=== PATIENT | male | born 1935 | race Caucasian/White ===

== ENCOUNTER 2016-07-03 13:43 | Inpatient (IN) ==
[2016-07-03] MEDS ORDERED: TYLENOL PO PRN (14:05)
[2016-07-03] MEDS ORDERED: MORPHINE IV PRN (14:05)
[2016-07-03] MEDS ORDERED: CARDIZEM 100 MG/NS 100 MG/100 ML IVPB IV SCH (14:08)
[2016-07-03] MEDS ORDERED: ULTRAM PO PRN (14:14)
[2016-07-03] MEDS ORDERED: SODIUM CHLORIDE 0.9% INJ PRN (14:15)
[2016-07-03] MEDS ORDERED: PHENERGAN IV PRN (14:15)
--- NOTE | 2016-07-03 14:47 | Diag Imaging Result Doc PS360 ---
CHEST-PORTABLE - 07/03/2016 INDICATION: a flutter TECHNIQUE: COMPARISON: None FINDINGS: There are sternotomy wires. Heart size and pulmonary vascularity is grossly normal. No focal infiltrates, pneumothorax, or pleural effusion. IMPRESSION: Negative exam. Electronically signed by Moisés García 07/03/2016 2:45 PM
--- NOTE | 2016-07-03 15:00 | HISTORY AND PHYSICAL ---
CHIEF COMPLAINT: Weak episodes and elevated heart rate. HISTORY OF PRESENT ILLNESS: The patient is a 80-year-old white male followed in my medical practice. He is also followed by Dr. Aldo Figueroa his nutrition instructor. He relates that about 1 week to 10 days ago he says he felt so weak he lost strength in his entire body. It was hard for him to get up from a chair and to even carry the garbage to the curb. He says off and on he has had some weak feelings but generally overall has felt well. He denies any chest pain, shortness of breath. He has been suffering from constipation and had tried taking MiraLAX but that seemed to cause rectal irritation and burning so he had to stop that. Today he was having trouble with constipation and had to take an enema. He strained vigorously to evacuate and nearly passed out. He noticed his pulse was in the 135 range. He denies any chest pains. He has been seeing Dr. Figueroa and last saw Dr. Figueroa and had 48 hour Holter monitor back in July 2015. Echo was done at that time as well with EF of 63%. 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 Postoperatively a couple of weeks later he suffered a stroke which left him paralyzed briefly on 1 side but he was able to have tPA administration and then was able to be transferred to [facility] and have intracranial intervention with stent. At that time fortunately he was able to regain complete use of his arms and legs and has been doing well generally since then. MEDICATIONS: Prior to admission are folic acid 800 mcg p.o. daily, aspirin 81 mg daily, Plavix 75 mg p.o. daily, Protonix 40 mg p.o. daily, Toprol-XL 25 mg p.o. daily, Lipitor 20 mg p.o. at bedtime, Ultram 50 mg p.o. q.6 hours p.r.n. pain. ALLERGIES: BRANDON inhibitor has caused a cough in the past. He also has an allergy to Ambien. PAST MEDICAL HISTORY: 1. Hypercholesterolemia diagnosed in 1994. 2. Hypertension 1997. 3. History of hemorrhoids. 4. History of pruritus ani. 5. Diet-controlled type 2 diabetes mellitus diagnosed September 2004. 6. CAD diagnosed via a calcium score of the heart 2009 with no VA but did require CABG. 7. CVA as above without residual. 8. Prostate cancer with observation therapy only, diagnosed initially in October 2013. 9. Gastroesophageal reflux disease. 10. Chronic constipation. 11. Chronic low back pain. Followed by Dr. Castillo with epidural injections. PAST SURGICAL HISTORY: 1. Hemorrhoidectomy x2. 2. Vasectomy in 1967. 3. Septoplasty. 4. CABG 2009. IMMUNIZATIONS: Pneumovax 23 given 04/21/2005 and January 2016. Zostavax given December 2006. Prevnar 13 given November 2014. Influenza vaccination given January 2016. FAMILY HISTORY: Notable for mother with VA at age 43 and brother VA at age 52. Stroke in his father at age 72. Diabetes mellitus in his maternal grandmother. No cancer in the family. Hypertension in his mother and brother. SOCIAL HISTORY: Patient lives in [place]. He is . He has 2 children. He is retired from [employer]. He quit smoking in 1959 and has a 3 pack year history of smoking. No alcohol usage. REVIEW OF SYSTEMS: Negative except as above. PHYSICAL EXAMINATION: VITAL SIGNS: Weight 172, blood pressure 102/70, pulse 136, O2 saturation on room air 98%. Temperature 96.9 degrees. GENERAL: Elderly white male, in no acute distress. HEENT: NC/AT, RHIANNA, EOMI. Sclerae slightly muddy. OP no redness. Tongue in the midline. NECK: No LA, TMG, JVD, or bruits. CV: Seems regular but prominent tachycardia noted. LUNGS: CTA. BACK: No CVA tenderness. ABDOMEN: Nontender, mildly protuberant. No mass or organomegaly. No rebound or guarding. GENITOURINARY/RECTAL: Deferred. EXTREMITIES: No edema. Arthritic changes are noted diffusely at this joint. NEUROLOGIC: Cranial nerves 2-12 are intact. He moves all extremities well. No distinct deficit is noted. EKG shows atrial flutter with 2-1 pattern with heart rate of 131. Troponin less than 0.01. Sedimentation rate is 5. White count, 11.4, hemoglobin 14.4, platelets 224,000. TSH 2.65, free T4 1.19. Sodium 145, potassium 4.7, chloride 107, CO2 23, glucose 90, BUN 18, creatinine 1.2, calcium 9.4, total bilirubin 0.71, total protein 7.3, albumin 4.1, alkaline phosphatase 79, SGOT 19, SGPT 13, total CK 98. Hemoglobin A1c 5.8. ASSESSMENT: 1. Atrial flutter with rapid ventricular response. 2. Presyncope thought related to #1. 3. Constipation, chronic. Unable to tolerate MiraLAX. We will change it to Linzess. 4. History of CAD with previous CABG. 5. History of cerebrovascular accident with no residual. 6. Hypercholesterolemia. 7. Hypertension. 8. Gastroesophageal reflux disease. 9. History of prostate cancer on observation therapy per Dr. Regan. PLAN: Will admit the patient to the ICU. Obtain serial cardiac enzymes, troponin levels. Check SPEP due to his chronic back pain. Start him on IV Cardizem if his blood pressure allows. Start him on full dose Lovenox. We will consult Cardiology. I have spoken in detail with Dr. Figueroa regarding the case. We will check chest x-ray. Check PT PTT. Hold his aspirin and Plavix but continue his other home medications except for the Toprol-XL. cc: Romeo Gale MD
[2016-07-03 15:17] LABS: INR 1.05; PROTIME 11.1 Seconds (9.2-11.7); PTT 27.7 Seconds (22.0-36.0)
[2016-07-03] MEDS: LOVENOX SUBQ SCH (15:23)
--- NOTE | 2016-07-03 15:35 | EKG Report ---
Test Performed on : 07/03/2016 2:38:49 PM Test Reason : AFLUTTER Blood Pressure : / mmHG Vent. Rate : 139 BPM Atrial Rate : 278 BPM P-R Int : 000 ms QRS Dur : 098 ms QT Int : 336 ms P-R-T Axes : 000 007 003 degrees QTc Int : 511 ms Atrial flutter. with variable AV block. with premature ventricular or aberrantly conducted complexes . Nonspecific ST abnormality Abnormal ECG When compared with ECG of 24-DEC-2014 20:11, Atrial flutter. has replaced Sinus rhythm. Vent. rate has increased BY [address] now depressed in Inferior leads ST now depressed in Lateral leads Confirmed by Dave LAKHANI, Rojelio Esparza ([id number]) on 07/07/2016 8:17:47 AM
--- NOTE | 2016-07-03 18:55 | CONSULTATION ---
DATE OF CONSULTATION: 07/03/2016 CARDIOLOGY CONSULTATION NOTE: IMPRESSION: 1. Atrial flutter with rapid ventricular rate, probably of about 10 days duration coinciding with onset of fatigue symptoms. 2. Episode of near syncope today while straining to have bowel movement. 3. Atherosclerotic coronary artery disease with previous coronary bypass grafting in 2009. 4. Cerebrovascular accidents approximately 2 days after being discharged from coronary bypass surgery in 2009. This was felt to be embolic. 5. Status post recurrent small cerebrovascular accident December 2014 with transient global amnesia that coincided withholding of anti-platelet agents. 6. Diet controlled type 2 diabetes mellitus. 7. Gastroesophageal reflux. 8. Chronic constipation. 9. Prostate cancer. 10. Hypercholesterolemia. 11. Hypertension. RECOMMENDATIONS: 1. Initiate measures to control heart rate with intravenous Cardizem transitioning to oral agents. 2. Significant thromboembolic risk potential demonstrated in light of patient's CHADS Vasc score. Initiate anticoagulation with Lovenox, probably transitioning to Eliquis. 3. Echocardiography. 4. In light of long holiday weekend, we will try to manage in-hospital to achieve rate control and anticoagulation and consider future TE cardioversion as an outpatient. HISTORY: This is a 80-year-old, white male, with past history of previous coronary bypass grafting in 2009, hypertension, hypercholesterolemia, cerebrovascular accident 2 days after discharge from coronary bypass procedure in 2009, small cerebrovascular accident 2014 after being taken off antiplatelet agents, diet controlled type 2 diabetes mellitus and prostate cancer, who was admitted today from Dr. Gale's office after he presented with fatigue and episode of near syncope. He was found to be in atrial flutter with rapid ventricular rate. He has been started on intravenous Cardizem and subcutaneous Lovenox. He is presently asymptomatic from a cardiovascular standpoint. He has had no angina, orthopnea, or palpitations. He is not aware of any previous atrial arrhythmias. He relates that he started having fatigue about 10 days ago. Today he was having some problems with constipation and was straining at stool when he experienced near-syncope. This was rather unusual for him and prompted him to seek evaluation in Dr. Gale's office. PAST MEDICAL HISTORY: 1. Atherosclerotic coronary disease and previous coronary bypass grafting in 2009. 2. Hypertension. 3. Hypercholesterolemia. 4. Diet controlled type 2 diabetes mellitus. 5. Cerebrovascular accident on 2 occasions as outlined above. 6. Prostate cancer. 7. Gastroesophageal reflux. 8. Chronic constipation. 9. Chronic low back pain. PAST SURGICAL HISTORY: Includes coronary artery bypass grafting in 2010, septoplasty, vasectomy, hemorrhoidectomy on 2 occasions. ALLERGIES: He is allergic or intolerant to angiotensin converting enzyme inhibitors which caused a cough. He is also intolerant of Ambien. CURRENT MEDICATIONS: As listed. SOCIAL HISTORY: He lives in [place]. He is . He is retired from [employer]. He quit smoking in 1959 and has a 3 pack-year history of smoking. He does not use alcohol. FAMILY HISTORY: Positive for coronary disease in that his mother suffered a myocardial infarction at age 43 and a brother suffered myocardial infarction at age 52. REVIEW OF SYSTEMS: Pulmonary: Negative. Gastrointestinal: Negative. Constitutional: Negative. Remainder review of systems negative beyond history of present illness with 14 total systems reviewed. PHYSICAL EXAMINATION: General: This is a pleasant, older white male in no distress. Vital Signs: As recorded are stable. HEENT: Extraocular movements appear intact. Mucous membranes are moist. Neck: Supple. No jugular venous distention. There are no carotid bruits. Chest: Clear to auscultation. Cardiac Exam: Reveals an irregular rate and rhythm without appreciable murmur or gallop. Abdomen: Soft, nontender. Bowel sounds are normal. Extremities: Without edema. Neurologic Exam: Reveals him to be alert, fully oriented. Speech is fluent. Moves all 4 extremities equally well. Skin: Warm and dry. Psychiatric: Reveals mood to be appropriate. DIAGNOSTIC DATA: ECG demonstrates atrial flutter with variable AV block, occasional premature or aberrantly conducted complexes. There is nonspecific ST abnormality. Laboratory data includes a troponin T of less than 0.01, ProTime 11.1, INR 1.05. Additional lab pending. cc: MD Romeo Armenta MD
[2016-07-03] MEDS: LOPRESSOR PO SCH (20:17)
[2016-07-03] MEDS ORDERED: LIPITOR PO SCH (21:00)
[2016-07-04] MEDS: LOVENOX SUBQ SCH (01:56)
[2016-07-04] MEDS: LOPRESSOR PO SCH ×2 (01:57→08:25)
[2016-07-04] MEDS ORDERED: PROTONIX PO SCH (07:00)
[2016-07-04 08:12] VITALS: BP 123/68
[2016-07-04] MEDS ORDERED: FOLIC ACID PO SCH ×2 (09:00)
[2016-07-04] MEDS ORDERED: THERA M PLUS PO SCH (09:00)
[2016-07-04] MEDS ORDERED: ASPIRIN PO SCH (09:00)
[2016-07-04] MEDS ORDERED: VITAMIN B-12 PO SCH (09:00)
--- NOTE | 2016-07-04 10:52 | PROGRESS NOTE ---
DATE: 07/04/2016 SUBJECTIVE: The patient continues without chest symptoms and relates feeling well. Overnight, he converted back to sinus rhythm. OBJECTIVE: Vital Signs: Blood pressure 123/68, heart rate 56 and regular with ECG monitor showing sinus rhythm. Neck: There is no significant jugular venous distention. Chest: Clear to auscultation. Cardiac exam: There was a regular rate and rhythm without appreciable murmur or gallop. There is no evidence of peripheral edema. Echocardiography demonstrates left ventricular ejection fraction 55% without wall motion evident. There is aortic valve sclerosis with mild aortic regurgitation, and there is also mild tricuspid regurgitation. LAB DATA: Troponin T less than 0.01. Followup troponin T less than 0.01. IMPRESSION: 1. Atrial flutter, resolved. 2. Atherosclerotic coronary disease, stable. 3. Previous cerebrovascular accident. 4. Hypercholesterolemia. 5. Hypertension. RECOMMENDATIONS: 1. Continue metoprolol. 2. Transition anticoagulation to Eliquis for thromboembolic risk protection. 3. Given conversion back to sinus rhythm, it is reasonable for patient to be discharged today and follow up within [address] Figueroa. We will see further on an as-needed basis. cc: MD Romeo Armenta MD
--- NOTE | 2016-07-04 11:31 | ECHO REPORT ---
ORDER DATE: 07/03/2016 MEASUREMENTS: Left ventricular end-diastolic diameter 3.8, end-systolic diameter 2.9, posterior wall thickness 1.3, septal thickness 1.1, left atrium 3.7, aortic root 4.1. SUMMARY: 1. Fair quality study. 2. Trileaflet aortic valve is sclerotic with mildly reduced aortic valve leaflet mobility but visibly adequate aortic valve opening evident on 2-dimensional views. Peak instantaneous gradient across the aortic valve is less than 10 mmHg. There is mild aortic regurgitation. Mitral, tricuspid, and pulmonic valves are without structural abnormality with trace mitral regurgitation and mild tricuspid regurgitation. Estimated systolic PA pressure by Doppler is 25 mmHg. The aortic root is mildly enlarged. 3. Normal left ventricular chamber size with upper normal wall thickness demonstrated. Estimated left ventricular ejection fraction is approximately 55%. No regional wall motion abnormalities are evident. Diastolic function difficult to determine as patient in atrial flutter at the time of study. Left atrium is upper normal in size. Right atrium and right ventricle have normal size with grossly preserved right ventricular force. 4. No pericardial effusion. 5. Appearance of inferior vena cava suggests normal central venous pressure. 6. Atrial flutter during study. CONCLUSIONS: 1. Aortic valve sclerosis without stenosis. Mild aortic regurgitation. 2. Mild tricuspid regurgitation. 3. Normal left ventricular ejection fraction without wall motion abnormality evident. 4. Mild aortic root enlargement. cc: MD Romeo Armenta MD
--- NOTE | 2016-07-04 11:58 | PROGRESS NOTE ---
DATE: 07/04/2016 SUBJECTIVE: Patient doing well. Sitting up in bed. He converted to sinus rhythm out of the atrial flutter around 11 p.m. last evening. He has had no difficulties. He has been on the Lovenox and the Cardizem drip. I have spoken with Dr. Negrete, who thinks he can go home on a slightly higher dose of his Toprol and on Eliquis. I had spoken with Dr. Figueroa prior to his admission. He recommended the Plavix in addition to the Eliquis. OBJECTIVE: Vital Signs: Afebrile, pulse 56, respirations 22, blood pressure 123/68, O2 saturation room air 96%. CV: RRR. Lungs: CTA. Extremities: No edema. Neuro: Nonfocal. Cranial nerves intact. LABS: Cardiac enzymes and troponin levels negative x3 prior to admission. Thyroid function tests normal. ASSESSMENT: 1. Atrial flutter, now resolved. 2. Presyncope, thought related to #1 with straining for a bowel movement. 3. Chronic constipation. 4. Coronary artery disease. 5. History of cerebrovascular accident. 6. Hypercholesterolemia. 7. Hypertension. 8. Gastroesophageal reflux disease. 9. Prostate cancer. PLAN: We will discharge the patient home on Toprol-XL 50 mg daily and Eliquis 5 mg b.i.d. and Plavix 75 mg daily and Linzess 78 mcg daily, and his other home medications. He will follow up in my office in 3-[address] Figueroa within a week. If he has any difficulties, he knows to come back here to the ER. cc: Romeo Gale MD
[2016-07-04] MEDS ORDERED: ELIQUIS PO SCH (21:00)
[2016-07-05] MEDS ORDERED: TOPROL XL PO SCH (09:00)
== END 2016-07-04 12:10 | disposition home or self-care (01) ==
LOC: DIRADM 13:43 → ICU 14:05
PROVIDERS: ADMIT Family Medicine; ATTEND Family Medicine

== ENCOUNTER 2016-08-18 16:29 | Inpatient (IN) ==
--- NOTE | 2016-08-18 17:20 | PROVIDER DOCUMENTATION ---
This chart was entered by Jade Lopez Scribe, acting as scribe for Meng Mckoy MD. HPI-Cardiac General - General Chief Complaint: Palpitations Stated Complaint: HIGH B/P,HEART RACING Time Seen by Provider: 08/18/16 16:43 Source: patient Allergies/Adverse Reactions: Patient Allergies Allergy/AdvReac Type Severity Reaction Status Date / Time No Known Allergies Allergy Verified 08/18/16 17:20 Home Medications: Home Medication List Medication Instructions Recorded Confirmed Last Taken Type Atorvastatin Calcium [Lipitor] 20 mg PO HS 12/24/14 08/18/16 08/17/16 20:00 History Clopidogrel Bisulfate [Plavix] 75 mg PO HS 12/24/14 08/18/16 08/17/16 20:00 History Folic Acid 1 mg PO DAILY 12/24/14 08/18/16 08/18/16 08:00 History Pantoprazole Sodium 40 mg PO DAILY 07/03/16 08/18/16 Unknown History Apixaban [Eliquis] 5 mg PO BID #60 tablet 07/04/16 08/18/16 08/18/16 07:00 Rx Tramadol [Ultram] 1 tab PO Q4-6H PRN PRN 07/04/16 08/18/16 Unknown History Metoprolol [Lopressor] 25 mg PO HS 08/18/16 08/18/16 08/18/16 08:00 History Potassium 99 mg PO DAILY 08/18/16 08/18/16 08/18/16 08:00 History - History of Present Illness-Cardiac Nature of Presenting Problem: 80 Y/O M present to ED with Palpitations. 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 Pt has a hx of CABG and CVA. Location: reports: central Severity in ED: moderate, severe Onset/Duration: just prior to arrival, 1/2 hour ago Timing: still present Context/Activities at Onset: reports: none Palpitation Quality: fast/pounding heart beat Nitro Today/Relief: reports: no nitro taken today Associated Symptoms: reports: denies symptoms Similar Symptoms Previously?: Yes Review of Systems - Adult - REVIEW OF SYSTEMS - ADULT Constitutional: denies: chills, fever Eyes: reports: no symptoms reported Ears, Nose, Mouth & Throat: reports: no symptoms reported Cardiovascular: reports: palpitations. denies: chest pain, syncope, other Respiratory: denies: cough, shortness of breath Gastrointestinal: reports: no symptoms reported Genitourinary: reports: no symptoms reported Musculoskeletal: reports: no symptoms reported Integumentary: reports: no symptoms reported Neurological: reports: no symptoms reported Psychiatric: reports: no symptoms reported Endocrine: reports: no symptoms reported Hematologic/Lymphatic: reports: no symptoms reported Allergic/Immunologic: reports: no symptoms reported All Other Systems: Reviewed and Negative Past History - Adult - PAST MEDICAL HISTORY-ADULT Review of Records: reports: Old Records Reviewed, Nursing Assessment Review, Medications Reviewed, Social history reviewed & non-contributory. Cardiovascular: reports: HTN Neurological: reports: TIA - PRIOR SURGERIES/PROCEDURES Surgical/Procedure History: reports: CABG, other (brain stent) - IMMUNIZATION STATUS Childhood Immunizations: See Nurse Assessment Flu Vaccine: See Nurse Assessment Physical Exam-General - PHYSICAL EXAM-ADULT Initial Vital Signs Reviewed: Yes - CONSTITUTIONAL General Appearance: appears well, alert, no apparent distress - EYES Eyes: pink conjunctivae, anisocoria - HEAD, EARS, NOSE, MOUTH & THROAT HENMT: moist mucous membranes, normal ENT inspection, TMs normal, pharynx normal - NECK Neck: full range of motion, supple, normal inspection - RESPIRATORY Respiratory: lungs clear, normal breath sounds - CARDIOVASCULAR Cardiovascular: tachycardia - GASTROINTESTINAL (ABDOMEN) Abdominal Exam: non tender, soft - MUSCULOSKELETAL Back Exam: no CVA tenderness, no vertebral tenderness Extremity: normal range of motion - SKIN Integumentary: normal turgor, warm/dry - PSYCHIATRIC Psych/Mental Status: normal thought content, normal thought process Progress - PLAN OF CARE/RESULTS Progress/Plan/Lab Results: Vital Signs - 8 hr 08/18/16 16:39 08/18/16 17:31 08/18/16 17:36 Temperature 98.5 F Pulse Rate 125 H 127 H 127 H Respiratory Rate 18 16 16 Blood Pressure 141/87 83/69 116/77 O2 Sat by Pulse Oximetry 97 94 L 95 Laboratory Results - last 24 hr 08/18/16 08/18/16 08/18/16 17:11 17:11 17:11 WBC 9.70 RBC 5.09 Hgb 14.0 Hct 42.6 MCV 83.7 MCH 27.5 MCHC 32.9 L RDW Std Deviation 14.5 Plt Count 282 MPV 10.2 Immature Gran % (Auto) 0.5 Neut % (Auto) 54.9 Lymph % (Auto) 28.4 [place] % (Auto) 11.8 H Eos % (Auto) 4.0 Baso % (Auto) 0.4 Immature Gran # (Auto) 0.05 H Neut # (Auto) 5.33 Lymph # (Auto) 2.75 [place] # (Auto) 1.14 H Eos # (Auto) 0.39 Baso # (Auto) 0.04 Sodium 142 Potassium 3.7 Chloride 105 Carbon Dioxide 20 L Anion Gap 17 BUN 12 Creatinine 1.1 Estimated GFR/1.73 m2 > 60 BUN/Creatinine Ratio 11 Glucose 142 H Calculated Osmolality 285 Calcium 9.6 Magnesium 2.3 Total Bilirubin 0.35 AST 22 ALT 17 Alkaline Phosphatase 84 Troponin T Total Protein 6.7 Albumin 4.3 Globulin 2.4 Albumin/Globulin Ratio 1.8 TSH 1.65 Free T4 1.27 08/18/16 17:11 WBC RBC Hgb Hct MCV MCH MCHC RDW Std Deviation Plt Count MPV Immature Gran % (Auto) Neut % (Auto) Lymph % (Auto) [place] % (Auto) Eos % (Auto) Baso % (Auto) Immature Gran # (Auto) Neut # (Auto) Lymph # (Auto) [place] # (Auto) Eos # (Auto) Baso # (Auto) Sodium Potassium Chloride Carbon Dioxide Anion Gap BUN Creatinine Estimated GFR/1.73 m2 BUN/Creatinine Ratio Glucose Calculated Osmolality Calcium Magnesium Total Bilirubin AST ALT Alkaline Phosphatase Troponin T < 0.010 Total Protein Albumin Globulin Albumin/Globulin Ratio TSH Free T4 Orders Category Date Time Status Cardiac Monitoring DIRECTED Care 08/18/16 16:50 Active Oxygen Therapy- ED Nursing DIRECTED Care 08/18/16 16:50 Active Saline Loc NOW Care 08/18/16 16:50 Active CHEST-PORTABLE [RAD] Stat Exams 08/18/16 16:50 Taken CBC WITH ELECTRONIC DIFF [HEME] Stat Lab 08/18/16 17:11 Completed COMPREHENSIVE METABOLIC PANEL [CHEM] Stat Lab 08/18/16 17:11 Completed MAGNESIUM [CHEM] Stat Lab 08/18/16 17:11 Completed PRO B-NATRIURETIC PEPTIDE Stat Lab 08/18/16 17:11 Received TROPONIN T Stat Lab 08/18/16 17:11 Completed TSH Stat Lab 08/18/16 17:11 Completed t4 [FREE T4] Stat Lab 08/18/16 17:11 Completed 0.9% Sodium Chloride Inj [Ns] 1,000 ml Med 08/18/16 17:33 Discontinued .ROUTE As Directed Diltiazem 100 mg/Ns [Cardizem 100 mg/Ns] Med 08/18/16 17:53 Active 100 mg in 100 ml IV 5 mg/hr Diltiazem [Cardizem] Med 08/18/16 17:30 Discontinued 10 mg IV NOW ONE Diltiazem [Cardizem] Med 08/18/16 17:25 Discontinued 25 mg .ROUTE .STK-MED ONE EKG [EKG] Stat Ther 08/18/16 16:50 Ordered Result Diagrams: 08/18/16 17:11 08/18/16 17:11 - REASSESSMENT Reassessment #1 Time Reassessed: 17:57 Status: unchanged (hx of atrial flutter, did not convert after 10 mg diltiazem, still appears to be sinus, will give fluid bolus pending lab) Reassessment #2 Time Reassessed: 17:57 Status: improving (now sort of hypotensive but atrial flutter/fib - giving fluid bolus and sending to floor. HR went to 110 and lower. Will see if lolerates a diltiazem drip) - EKG 1 Time of EKG reading by physician:: 16:36 EKG Read and Signed by:: Monico Yates EKG Interpretation (*Must complete 3 of following elements*): Abnormal Rate: 125 Rhythm: Sinus Tachycardia Comments: Abnormal ECG, Posterior Infract 2 Time of EKG reading by physician:: 17:33 EKG Read and Signed by:: Meng Mckoy EKG Interpretation (*Must complete 3 of following elements*): Abnormal Rate: 108 Rhythm: Atrial flutter with variable AV block Comments: Abnormal ECG. Inferior posterio infract, age undetermined - CONSULTS/PCP/HOSPITALIST Notification #1 *Consult/PCP/Hospitalist*: Dr Gale (Dr Saldana covering) Time Discussed: 18:21 Consult Disposition: Admit (discussed dig/ diltiazem drip) Departure - Departure Date of Disposition Decision: 08/18/16 Time of Disposition Decision: 18:22 DIAGNOSIS: Atrial fibrillation and flutter Disposition: ADMITTED INPATIENT 09 Certified Medical Emergency: Emergent Condition: Stable Referrals and Follow-Ups: Romeo Gale MD [Primary Care Provider] - - Critical Care Note This patient required my direct & personal management of CC.: No This chart was documented by the indicated scribe, (Jade Lopez, Jazmyn) and accurately reflects the services I performed and decisions made by me, Meng Mckoy MD, as attested by the provider's signature.
[2016-08-18] MEDS ORDERED: CARDIZEM ONE (17:25)
[2016-08-18 17:26] LABS: MANUAL DIFF NEEDED? NO
[2016-08-18] MEDS ORDERED: CARDIZEM IV ONE (17:30)
[2016-08-18 17:31] LABS: BASO% 0.4 % (0.0-0.8); EOS# 0.39 X1000 (0.0-0.7); HEMATOCRIT 42.6 % (42.0-52.0); IMM GRAN# 0.05 X1000 (0.0-0.04); IMM GRAN% 0.5 % (0.0-0.5); LYMPH# 2.75 X1000 (1.2-3.4); LYMPH% 28.4 % (20.5-51.1); MCH 27.5 PG (27-31); MCHC 32.9 g/dL (33-37); MCV 83.7 FL (81-99); MONO# 1.14 X1000 (0.11-0.59); MONO% 11.8 % (1.7-9.3); MPV 10.2 FL (7.4-10.4); NEUT% 54.9 % (42.2-75.2); PLT 282 X1000 (130-400); RBC 5.09 XMIL (4.7-6.1)
[2016-08-18] MEDS ORDERED: NS 1,000 ML ONE (17:33)
[2016-08-18] MEDS ORDERED: CARDIZEM 100 MG/NS 100 MG/100 ML IVPB IV SCH (17:53)
[2016-08-18 17:59] LABS: AGAP 17; ALBUMIN 4.3 g/dL (3.5-5.0); ALKALINE PHOSPHATASE 84 U/L (32-122); BUN 12 mg/dL (8-22); CALCIUM 9.6 mg/dL (8.8-10.2); CHLORIDE 105 mmol/L (98-107); COSMO 285; GOT 22 U/L (10-34); GPT 17 U/L (10-44); MAGNESIUM 2.3 mg/dL (1.5-2.7); POTASSIUM 3.7 mmol/L (3.5-5.1); SODIUM 142 mmol/L (136-145); TCO2 20 mmol/L (25-35); TOTAL BILIRUBIN 0.35 mg/dL (0.20-1.00); TOTAL PROTEIN 6.7 g/dL (6.3-8.3)
[2016-08-18 18:07] LABS: FREE T4 1.27 ng/dL (0.93-1.70)
[2016-08-18] MEDS ORDERED: NS 1,000 ML IV ONE (18:09)
[2016-08-18] MEDS ORDERED: LANOXIN IV ONE (18:11)
--- NOTE | 2016-08-18 19:08 | Diag Imaging Result Doc PS360 ---
EXAM: CHEST-PORTABLE HISTORY: sob/ tachycardia TECHNIQUE: AP portable upright chest at 1725 COMMENT: The appearance of the chest has not changed significantly since 07/03/2016. IMPRESSION: No evidence of acute disease. Electronically signed by Umesh Crawford 08/18/2016 7:06 PM
--- NOTE | 2016-08-18 19:25 | HISTORY AND PHYSICAL ---
HISTORY OF PRESENT ILLNESS: Mr. Velasquez is a 80-year-old, white gentleman, patient of Dr. Gale, comes to the emergency room because his heart started beating faster, it was around 124. He was alert. He came to the emergency room and his heart rate went up to about 140 with atrial fibrillation. He was started on Cardizem IV and the blood pressure dropped. Lanoxin 0.5 mg has been given so far. His heart rate is still around 118, however, the blood pressure does come back up with IV bolus. He has a known case of coronary artery disease. He had 2 vessel bypass surgery. He had a stroke on the left side. According to the family, he was taken to [facility] where the clot was extracted and he improved significantly. He has a history of hypertension and intermittent atrial fibrillation. He was admitted a month ago to ICU and later on converted. He did not have any other major surgeries performed on him. He smoked some when he was young but he has not been a smoker. He does not drink. ALLERGIES: He is not allergic to medications. INCOMPLETE REPORT - DICTATION STOPS HERE cc: Arie Saldana MD
[2016-08-18] MEDS: LOPRESSOR PO SCH (21:24)
[2016-08-18] MEDS: PLAVIX PO SCH (21:24)
[2016-08-18] MEDS: LIPITOR PO SCH (21:24)
[2016-08-18] MEDS: ELIQUIS PO SCH (21:25)
--- NOTE | 2016-08-19 03:37 | HISTORY AND PHYSICAL ---
ADDENDUM SOCIAL HISTORY: Mr. Velasquez does not drink. ALLERGIES: He is not allergic to any medications. CURRENT MEDICATIONS: Protonix 40 mg daily. Apixaban 5 mg daily. Plavix 75 mg daily basis. REVIEW OF SYSTEMS: General: He is weak. Cardiopulmonary: He has palpitation, no chest pain. Lungs: He has no shortness of breath. He has not gone into congestive heart failure so far. He says he did not have a heart attack. PHYSICAL EXAMINATION: Mr. Velasquez is alert. VITAL SIGNS: His heart rate is around 127, blood pressure 137/104, temperature normal, respiratory rate 17 per minute. HEENT: Head normocephalic. Pupils PERRLA. Fundus examination not done. Neck supple. JVP normal. ENT examination unremarkable. There is no evidence of lymphadenopathy, thyroid enlargement, pedal edema, calf tenderness, anemia, cyanosis or clubbing. Pedal pulses well felt. BREASTS: Normal. Chest normal inspection. It reveals a midline scar from bypass surgery. LUNGS: Clear on auscultation. PMI in the normal position. HEART: Regular. Heart rate is around 120 per minute. There is no murmur, gallop or rub noted. ABDOMEN: Nondistended. Hernial orifices normal. No guarding, rigidity, free fluid, masses, or organomegaly. Bowel sounds normal. RECTAL: Deferred. ALARM SECURITY OR SURVEILLANCE MONITOR/HIGHER FUNCTIONS: Normal. Cranial nerves normal. Motor and sensory system examination unremarkable. Deep tendon reflexes normal. Plantars downgoing. Skull and spine examination normal for age. No cerebellar signs or signs of meningeal irritation. LOCOMOTOR: Unremarkable. SKIN: Unremarkable. CLINICAL IMPRESSION: 1. Atrial fibrillation with rapid ventricular response of blood pressure. 2. History of hypertension. 3. Severe coronary artery disease. 4. History of cerebrovascular accident in the past. 5. His current medications include pantoprazole, tramadol, metoprolol, folic acid, clopidogrel, Lipitor and apixaban 5 mg b.i.d. We will we will admit him to ICU. cc: Arie Saldana MD
--- NOTE | 2016-08-19 05:44 | EKG Report ---
Test Performed on : 08/18/2016 4:36:55 PM Test Reason : NO ORDER Blood Pressure : / mmHG Vent. Rate : 125 BPM Atrial Rate : 125 BPM P-R Int : 184 ms QRS Dur : 112 ms QT Int : 326 ms P-R-T Axes : 079 018 088 degrees QTc Int : 470 ms Sinus tachycardia. Posterior infarct , age undetermined Abnormal ECG When compared with ECG of 03-JUL-2016 14:38, Sinus rhythm. has replaced Atrial flutter. ST elevation has replaced ST depression in Inferior leads Unconfirmed Result
[2016-08-19] MEDS: FOLIC ACID PO SCH (08:23)
[2016-08-19] MEDS: PROTONIX PO SCH (08:23)
[2016-08-19] MEDS: ELIQUIS PO SCH ×2 (08:23→20:52)
[2016-08-19] MEDS: CORDARONE PO SCH ×3 (10:40→16:33)
--- NOTE | 2016-08-19 12:55 | EKG Report ---
Test Performed on : 08/19/2016 10:28:34 AM Test Reason : afib/aflutter Blood Pressure : / mmHG Vent. Rate : 071 BPM Atrial Rate : 071 BPM P-R Int : 182 ms QRS Dur : 104 ms QT Int : 408 ms P-R-T Axes : 012 005 074 degrees QTc Int : 443 ms Normal sinus rhythm. ST \T\ T wave abnormality, consider anterior ischemia Abnormal ECG When compared with ECG of 18-AUG-2016 17:33, (Unconfirmed) Sinus rhythm. has replaced Atrial flutter. Vent. rate has decreased BY 37 BPM Criteria for Inferior-posterior infarct are no longer present T wave inversion now evident in Anterior leads Confirmed by Leti Villagran MD ([id number]) on 08/19/2016 1:33:10 PM
--- NOTE | 2016-08-19 13:06 | PROGRESS NOTE ---
DATE: 08/19/2016 SUBJECTIVE: Patient remains in the ICU. Heart rate has come down overnight with Cardizem drip to below 100. He remains in atrial fibrillation. Denies any chest pains. No shortness of breath. OBJECTIVE: Vital Signs: Afebrile, pulse 92, pressure 127/82. General: Elderly, white male, in no acute distress. Talkative, appropriate. Neurologic: Cranial nerves intact. CV: Irregularly irregular. Lungs: CTA. Extremities: No edema. Arthritic changes noted to hands. Lab Data: Reviewed from admission to include CBC, CMP, thyroid function test, proBNP, troponin, total CKs which we will get. Chest x-ray negative. ASSESSMENT: 1. Paroxysmal atrial fibrillation with rapid ventricular response, now improved on a Cardizem drip. 2. Hypercholesterolemia. 3. Hypertension. 4. Diet-controlled type 2 diabetes mellitus. 5. Coronary artery disease with history of coronary artery bypass graft in the past. 6. History of cerebrovascular accident without significant residual. 7. Prostate cancer with observation therapy. 8. Gastroesophageal reflux disease. 9. Chronic constipation. 10. Chronic low back pain. PLAN: Dr. Negrete is recommending that the patient be moved out of the ICU to the [facility] and we will monitor him there on telemetry. He is changing off the Cardizem drip to amiodarone orally. We will keep him on his Eliquis and Plavix. Monitor his heart rate on the amiodarone. Continue his other home medications except for the potassium supplementation. We will follow the patient clinically. cc: Romeo Gale MD
--- NOTE | 2016-08-19 13:30 | CONSULTATION ---
DATE OF CONSULTATION: 08/19/2016 IMPRESSION: 1. Recurrent atypical atrial flutter with rapid ventricular rate. This subsequently transitioned to atrial fibrillation with better rate control and then ultimately converted back to sinus rhythm at the time of consultation. The patient had previous atypical atrial flutter 6 weeks ago that also spontaneously converted back to sinus rhythm. 2. Atherosclerotic coronary disease with previous coronary bypass grafting 2009. Left ventricular systolic function normal. 3. Prior cerebrovascular accidents 2 days after being discharged from coronary bypass and felt to be embolic. 4. Status small cerebrovascular accident in 12/2014 with transient global amnesia that coincided with interruption of anti-platelet agents. 5. Type 2 diabetes mellitus. 6. Gastroesophageal reflux. 7. Hypercholesterolemia. 8. Hypertension. RECOMMENDATIONS: 1. Discontinue intravenous Cardizem. 2. Given atypical atrial flutter and coexisting atrial fibrillation that has recurred, favor suppressing atrial arrhythmias with amiodarone. Will initiate loading with amiodarone prior to likely discharge tomorrow. 3. Continue long-term anticoagulation with Eliquis. 4. The patient would benefit from Lexiscan myocardial fusion imaging but this could reasonably be obtained following discharge. 5. There were emerge some tendency for sinus bradycardia or other bradyarrhythmia with treatment of amiodarone that might obligate permanent pacemaker implant. This was reviewed with the patient. HISTORY: This is a 80-year-old, white male, with past history of previous coronary bypass in 2009, hypertension, and hypercholesterolemia, cerebrovascular accident 2 days after discharge from coronary bypass procedure in 2009, small cerebrovascular accident in 2014 after being off antiplatelet agents, type 2 diabetes mellitus controlled with diet. Prostate cancer and atrial arrhythmias was admitted through the emergency room yesterday evening after he presented with sudden sensation of feeling weak with associated tachycardia. He was found to be in atypical atrial flutter and was started on intravenous Cardizem for rate control. He is admitted to the Intensive Care Unit. He denied any chest discomfort, lightheadedness, or syncope. He relates suddenly feeling weak. He checked his blood pressure and tachycardia was realized. He indicates that he fairly often checks his blood pressure and normally notes his heart rate is around 60 beats per minute. He is moderately active. He does walk for exercise but has noted that he has a tendency for some fatigued at times. This predates his being on beta-kathy. While patient being interviewed, he was observed to convert from atypical atrial flutter to atrial fibrillation with decrease in heart rate from 130 beats per minute to 100 beats per minute. Within 5 minutes, thereafter, he converted from atrial fibrillation to sinus rhythm at around 62 beats per minute. PAST MEDICAL HISTORY: 1. Atrial arrhythmias. Specifically, previous atypical atrial flutter. 2. Atherosclerotic coronary artery disease with previous coronary bypass graft in 2009. 3. Hypertension. 4. Hypercholesterolemia. 5. Type 2 diabetes mellitus, controlled with diet. 6. Cerebrovascular accident 2 days after being discharged from coronary bypass surgery in 2009 felt to be embolic. 7. Cerebrovascular accident in 2015 which felt to be small in nature and consisting of transient global amnesia that coincided with interruption of anti-platelet agents. 8. Prostate cancer. 9. Gastroesophageal reflux. 10. Chronic constipation. 11. Chronic low back pain. PAST SURGICAL HISTORY: Previous coronary bypass grafting in 2009, septoplasty, vasectomy, hemorrhoidectomy on 2 occasions. ALLERGIES: He is allergic or intolerant to angiotensin converting enzyme inhibitors due to cough. He is also intolerant of Ambien. CURRENT MEDICATIONS: As listed. It is noteworthy that he has been on anticoagulation with Eliquis. SOCIAL HISTORY: He lives in [place] and is . He is retired from work with [employer]. He quit smoking in 1959 and has a 3 pack-year history of smoking. He does not use alcohol. FAMILY HISTORY: Positive for coronary artery disease at a relatively earlier age. REVIEW OF SYSTEMS: Pulmonary: Negative. Gastrointestinal: Negative. Constitutional: Negative. Remaining review of systems negative beyond history of present illness with 14 total systems reviewed. PHYSICAL EXAMINATION: General: This is a pleasant, older, white male, in no distress. Vital Signs: As recorded are stable. HEENT: Extraocular movements intact. Mucous membranes moist. Neck: Supple. No jugular venous distention. No carotid bruits. Chest: Clear to auscultation. Cardiac: Exam initially revealed an irregular rate and rhythm without appreciable murmur or gallop. Patient converted from atypical flutter to atrial fibrillation to sinus rhythm after which his heart rhythm became regular. Abdomen: Soft, nontender. Bowel sounds are normal. Extremities: Without edema. Neurologic Exam: Reveals him to be alert and fully oriented. Speech is fluent. He moves all 4 extremities equally well. Skin: Warm and dry. Psychiatric: Exam reveals mood to be appropriate. Initial ECG demonstrates atypical atrial flutter with rapid ventricular rate. Nonspecific ST abnormality demonstrated. Repeat ECG after patient converts demonstrates normal sinus rhythm and nonspecific ST and T-wave abnormality demonstrates sinus rhythm, incomplete right bundle branch block and nonspecific T-wave abnormality. cc: MD Romeo Armenta MD
[2016-08-19] MEDS: ULTRAM PO PRN ×2 (16:35→23:16)
[2016-08-19] MEDS: LIPITOR PO SCH (20:51)
[2016-08-19] MEDS: PLAVIX PO SCH (20:52)
[2016-08-19] MEDS: LOPRESSOR PO SCH (21:05)
[2016-08-19] MEDS: DIOVAN PO SCH (21:29)
--- NOTE | 2016-08-20 06:24 | EKG Report ---
Test Performed on : 08/20/2016 05:52:16 AM Test Reason : afib/aflutter Blood Pressure : / mmHG Vent. Rate : 051 BPM Atrial Rate : 051 BPM P-R Int : 208 ms QRS Dur : 112 ms QT Int : 472 ms P-R-T Axes : 035 006 064 degrees QTc Int : [address] \T\ T wave abnormality, consider anterior ischemia Abnormal ECG When compared with ECG of 19-AUG-2016 10:28, No significant change was found Confirmed by Leti Villagran MD ([id number]) on 08/20/2016 1:07:37 PM
[2016-08-20] MEDS: CORDARONE PO SCH (09:40)
[2016-08-20] MEDS: PROTONIX PO SCH (09:40)
[2016-08-20] MEDS: DIOVAN PO SCH (09:40)
[2016-08-20] MEDS: ELIQUIS PO SCH (09:40)
[2016-08-20] MEDS: FOLIC ACID PO SCH (09:40)
[2016-08-20 12:20] VITALS: BP 125/72
--- NOTE | 2016-08-20 13:29 | PROGRESS NOTE ---
DATE: 08/20/2016 SUBJECTIVE: The patient continues asymptomatic from a cardiovascular standpoint. OBJECTIVE: Vital Signs: Blood pressure 125/72, heart rate 66 and regular with ECG monitor showing sinus rhythm. Neck: There is no significant jugular venous distention. Chest: Clear to auscultation. Cardiac Exam: Reveals a regular rate and rhythm without appreciable murmur or gallop. Extremities: There is no evidence of peripheral edema. IMPRESSION: 1. Paroxysmal atrial arrhythmias including atypical atrial flutter and atrial fibrillation. Patient has spontaneously converted back to sinus rhythm. 2. Atherosclerotic coronary disease. 3. Previous cerebrovascular accident on two occasions. 4. Type 2 diabetes mellitus. 5. Hypercholesterolemia. 6. Hypertension. RECOMMENDATIONS: 1. Continue amiodarone at 200 mg twice daily for 2 weeks, then reduce to dose of 200 mg daily. 2. Metoprolol discontinued. Patient was having fatigue with this medication as well. Would utilize valsartan or other ARB for blood pressure management. 3. Given the patient's apparent clinical stability, it is reasonable to discharge him home today and follow up with Dr. Figueroa in approximately 2 weeks. cc: MD Romeo Armenta MD
--- NOTE | 2016-08-20 13:37 | PROGRESS NOTE ---
DATE: 08/20/2016 SUBJECTIVE: Patient has converted to sinus bradycardia and is doing well. Remains in the ICU. No chest pain or difficulties. OBJECTIVE: Vital Signs: Afebrile. Vital signs stable. CV: RRR. Lungs: CTA. Extremities: No edema. Neurologic: Nonfocal. ASSESSMENT: 1. Paroxysmal atrial fibrillation now back in sinus rhythm on amiodarone and Cardizem drip. 2. Hypercholesterolemia. 3. Hypertension. 4. Diet-controlled type 2 diabetes mellitus. 5. Coronary artery disease. 6. History of cerebrovascular accident without significant residual. 7. History of prostate cancer with observation therapy. 8. Gastroesophageal reflux disease. 9. Chronic constipation. 10. Chronic low back pain. PLAN: Dr. Negrete is coming by to recommend discharge the patient to home. He will follow up with Dr. Figueroa in 2 weeks. DISCHARGE MEDICATIONS: 1. Amiodarone 200 mg b.i.d. for 2 weeks and then every-day dosing thereafter. 2. He will remain on his Eliquis. 3. Diovan has been added at 40 mg daily. 4. He is off his Lopressor. FOLLOW UP: He will follow up with me as needed. cc: Romeo Gale MD
[2016-08-20] MEDS ORDERED: CORDARONE PO SCH (21:00)
== END 2016-08-20 15:26 | disposition home or self-care (01) ==
LOC: ED 16:29 → ICU 20:12
PROVIDERS: ADMIT Family Medicine; ATTEND Family Medicine

== ENCOUNTER 2018-07-28 07:00 | Inpatient (IN) ==
[2018-07-26 11:13] LABS: HEMATOCRIT 35.8 % (42.0-52.0); HEMOGLOBIN 11.2 g/dL (14.0-18.0); MCH 27.1 PG (27-31); MCHC 31.3 g/dL (33-37); MCV 86.5 FL (81-99); MPV 9.5 FL (7.4-10.4); RBC 4.14 XMIL (4.7-6.1); RDW 13.7 % (11.5-14.5); WBC 6.14 X1000 (4.8-10.8)
--- NOTE | 2018-07-26 11:16 | Diag Imaging Result Doc PS360 ---
EXAM: CHEST-2 VIEWS HISTORY: PAT TECHNIQUE: Chest two views COMPARISON: 09/06/2016 FINDINGS: The lungs are well expanded. The heart is not enlarged. Sternal wires are present. The vessels are not distended. There are no infiltrates. No pleural effusions. IMPRESSION: No acute abnormality. Electronically signed by Pablo Joyce 07/26/2018 11:14 AM
[2018-07-26 11:54] LABS: CALCIUM 9.3 mg/dL (8.8-10.2); CREATININE 1.4 mg/dL (0.7-1.2); POTASSIUM 4.4 mmol/L (3.5-5.1)
[2018-08-03] MEDS ORDERED: LR 1,000 ML ONE ×2 (07:10→09:01)
[2018-08-03] MEDS ORDERED: PEPCID ONE (07:10)
[2018-08-03] MEDS ORDERED: KEFZOL 1 GM/D5W 1 GM/50 ML IVPB ONE (07:10)
[2018-08-03] MEDS ORDERED: DIPRIVAN 1% ONE (07:32)
[2018-08-03] MEDS ORDERED: MARCAINE 0.25% PF/EPI 1:200,000 ONE (09:01)
[2018-08-03] MEDS ORDERED: ZOFRAN ONE (09:52)
[2018-08-03] MEDS ORDERED: ZEMURON ONE (09:52)
[2018-08-03] MEDS ORDERED: XYLOCAINE-MPF 2% ONE (09:52)
[2018-08-03] MEDS ORDERED: DECADRON ONE (09:52)
[2018-08-03] MEDS ORDERED: OFIRMEV 1000 MG/ISOTONIC SOLN 1,000 MG/100 ML BOTTLE ONE (09:52)
[2018-08-03] MEDS ORDERED: QUELICIN (DOSE) ONE (09:52)
[2018-08-03] MEDS ORDERED: EPHEDRINE ONE (09:56)
[2018-08-03] MEDS ORDERED: AK-FLUOR ONE (11:00)
[2018-08-03] MEDS ORDERED: ROBINUL ONE (11:28)
[2018-08-03 11:44] LABS: URINE SOURCE CATH
[2018-08-03] MEDS ORDERED: EXPAREL 1.3% ONE (11:47)
[2018-08-03] MEDS ORDERED: MARCAINE 0.5% PF ONE (11:47)
[2018-08-03 11:48] LABS: UR EPITHELIAL CELLS <10 /HPF (<10); URINE BACTERIA NEGATIVE /HPF; URINE RBC <10 /HPF (<10); URINE WBC <10 /HPF (<10)
[2018-08-03 11:49] LABS: BILIRUBIN URINE NEGATIVE (NEGATIVE); BLOOD URINE NEGATIVE (NEGATIVE); COLOR YELLOW; GLUCOSE URINE NEGATIVE (NEGATIVE); KETONE URINE NEGATIVE (NEGATIVE); LEUKOCYTES URINE NEGATIVE (NEGATIVE); NITRITE URINE NEGATIVE (NEGATIVE); PROTEIN URINE NEGATIVE (NEGATIVE); SP GRAVITY URINE 1.007; TURBIDITY URINE CLEAR (CLEAR); UROBILINOGEN URINE NORMAL (NORMAL)
[2018-08-03] MEDS ORDERED: NS 1,000 ML ONE (12:29)
[2018-08-03] MEDS ORDERED: MORPHINE ONE ×2 (12:29→12:36)
[2018-08-03] MEDS ORDERED: ULTRAM PO PRN (13:32)
[2018-08-03] MEDS: DILAUDID IV PRN (14:22)
[2018-08-03] MEDS: FLAGYL 500 MG/NS 500 MG/100 ML IVPB IV SCH (16:58)
[2018-08-03] MEDS: OFIRMEV 1000 MG/ISOTONIC SOLN 1,000 MG/100 ML BOTTLE IV SCH ×2 (18:15→21:20)
[2018-08-03 18:30] LABS: HEMATOCRIT 36.1 % (42.0-52.0); HEMOGLOBIN 11.1 g/dL (14.0-18.0)
[2018-08-03] MEDS: KEFZOL 1 GM/D5W 1 GM/50 ML IVPB IV SCH (18:39)
--- NOTE | 2018-08-03 19:39 | OPERATIVE NOTE ---
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 PROCEDURE: 1. Diagnostic laparoscopy. 2. Exploratory laparotomy with small-bowel resection and right hemicolectomy with ileocolic anastomosis and removal of a mesenteric mass. SURGEON: Gerald Henry MD LEAD GENERATOR: Tray Garcia MD SECOND WASH HOUSE SUPERVISOR: Will Ramsey MD. ANESTHESIA: General. ESTIMATED BLOOD LOSS: 300 mL. COMPLICATIONS: None apparent. SPECIMENS: Distal small bowel mesenteric mass and right colon. FINDINGS: The patient had a large desmoplastic mass of his mesentery that was located near the root of the SMA; however, the blood supply to the proximal jejunum appeared to be preserved. The blood supply to the ileum and right colon required sacrifice to remove the mass. There is no evidence of any metastasis to his omentum, liver, or other peritoneal surfaces or organs. TECHNIQUE: The patient was brought to the operating room and placed supine on the table. General anesthesia was induced. A Phillips catheter was placed. He was prepped and draped in usual sterile fashion. 0.25% Marcaine with epinephrine was used to anesthetize our laparoscopic incisions. We made an incision just to the left and above the umbilicus with a knife and then exposed the anterior rectus fascia and incised it sharply. Entry to the peritoneal cavity was obtained under direct vision with the Optiview device. Pneumoperitoneum was established. The camera was inserted. There was no evidence of injury to underlying structures. An 8 mm incision port was placed in the left lower abdomen and another in the left lateral abdomen. Using these ports, I placed the patient in Trendelenburg and left rotation, and I began exploring for the mass. It quickly became apparent that there was a large desmoplastic mass in the root of the mesentery involving a good portion of multiple loops of small bowel. It was not going to be feasible to continue in a minimally invasive fashion. Therefore, I went ahead and removed these ports and desufflated the abdomen and prepared for an open procedure. While the instruments were being brought in the room and opened, I closed his periumbilical port site fascia with a 0 Vicryl figure- of-eight suture. The skin incisions of these port sites were closed with a running 4-0 subcuticular Monocryl and eventually at the end of the case, Steri-Strips. I then made a generous midline incision from the epigastrium down to the lower abdomen with a knife and carried this down through the subcutaneous fat sharply. The fascia was exposed and incised sharply with cautery. The peritoneum was then grasped between hemostats and entered safely with Metzenbaum scissors. I then completed incising the peritoneum and fascia throughout the length of the skin incision with cautery being careful to protect the underlying bowel. Exploration of the abdomen revealed no evidence of metastatic disease. This mass was large. It was involving a significant amount of distal small bowel mesentery. As I incised the peritoneum laterally underneath the terminal ileum and cecum to get a better look, I identified the duodenum. It too was also pulled up in a desmoplastic reaction to the mass. I worked to free the duodenum carefully by incising areolar fibers and scar tissue with Metzenbaum scissors, and this allowed the duodenum to fall away from the mass. There was a small serosal tear on the duodenum that I repaired with 3 interrupted seromuscular 3-0 silk sutures. The duodenum was felt to be repaired well, and at the end of the case, I checked it again and did not see any leakage from it or compromise of its lumen. Dr. Garcia joined me and was the children's nursery assistant for the felder portions of the case involving dissecting out this mass and dividing the small bowel mesentery and the small bowel and colon so he was there for all the principal portions of exposure, retraction, control of bleeding. He assisted with all these portions during the resection of the bowel. So we carefully and tediously incised the peritoneum around the mass right against it to preserve as much as possible the blood supply of the proximal small bowel. I did visualize and could feel a palpable arterial vessel that was felt to be supplying the proximal small bowel and away from the mass. I did also use a hand-held Doppler to confirm blood supply as we went along. I began taking terminal branches of the jejunal and ileal mesenteric vessels with the LigaSure device as we clamped. Before burning and ligating, we did check for blood flow, and it continued to remain present in the proximal bowel. Once we had the mass completely mobilized off of its mesenteric attachments, I then proceeded to divide the bowel at 2/3 the distance from the ileocecal valve. We divided it with a linear blue OLIVIA stapler. The right colon was then mobilized off the retroperitoneum, incising the white line of Toldt laterally and dissecting it off of its retroperitoneal attachments. We did identify the duodenum throughout this dissection and carefully stayed away from it. The ascending colon was divided near the hepatic flexure with a linear OLIVIA stapler. The specimen was passed off the field. During this removal near the root of the mesentery, there was some shearing of a branch of the superior mesenteric vein I believe. This required several placements of hemoclips to control venous bleeding. Once this was done, I inspected, and there were no signs of any significant bleeding, only some minor oozing so I placed some Surgifoam in this area and later went back and checked it before we closed, and there were no signs of any ongoing bleeding. At this point Dr. Garcia had to scrub out to go do another case, and Dr. Ramsey scrubbed in and was the second certified medical assistant for the remaining portion of the case including the ileocolic anastomosis, and he was very helpful for retraction exposure and then being the certified medical assistant for this anastomosis. In addition we also evaluated the viability of the remaining bowel. We decided to use some fluorescein as there was some question of the mid jejunum blood supply. There was ongoing peristalsis of the bowel throughout the case, but the pulsatile nature of the terminal branches entering the bowel was less prominent at this point. Therefore, fluorescein was given by the director cloud transformation. We let this circulate and used a Wood's lamp and confirmed what appeared to be good adequate blood supply to our mesentery and bowel other than 2 cm from the staple line where we had previously transected it. So I resected this distal portion of the small bowel. That is the last 2 cm that were somewhat questionable as far as viability, and it was resected with another firing of the stapler. We now proceeded to perform an isoperistaltic [id number] stapled and hand-sewn anastomosis. The bowel was brought in an antimesenteric fashion to the tenia kait of the transverse colon. The corner of the antimesenteric staple line on the small bowel was removed with scissors. A colotomy was made with the cautery. The 60 mm linear blue stapler was then passed down each limb. In an antimesenteric to antimesenteric fashion, the stapler was fired creating an anastomosis. I then closed the common enterotomy with two 3-0 Vicryl in a running fashion tying them in the middle and then oversewed this with a second row of seromuscular 3-0 silk sutures in interrupted fashion. The anastomosis was patent. It appeared to have good blood supply. There was no tension. I then closed the mesenteric defect with a running 2-0 silk without compromising the surrounding blood supply to the bowel. We then irrigated with saline and then suctioned this out. There were no signs of any bleeding. All laparotomy pads and instruments were accounted for and removed from the abdomen. I then placed the abdomen back into its anatomic position and closed the peritoneum and fascia with a running #1 looped Maxon suture in 2 directions. The skin was closed with skin clips. He was awakened in stable condition and transferred to the recovery room, and the anesthesiologist also performed a TAP block. cc: Gerald Henry MD
[2018-08-03] MEDS: LIPITOR PO SCH (21:20)
[2018-08-03] MEDS: CORDARONE PO SCH (21:20)
[2018-08-03] MEDS: PERIDEX MT SCH (21:20)
[2018-08-04] MEDS: FLAGYL 500 MG/NS 500 MG/100 ML IVPB IV SCH ×2 (00:01→08:03)
[2018-08-04] MEDS: KEFZOL 1 GM/D5W 1 GM/50 ML IVPB IV SCH ×2 (01:16→08:03)
[2018-08-04] MEDS: PROTONIX PO SCH ×2 (05:47→06:04)
[2018-08-04] MEDS: OFIRMEV 1000 MG/ISOTONIC SOLN 1,000 MG/100 ML BOTTLE IV SCH ×2 (05:47→12:08)
--- NOTE | 2018-08-04 07:08 | GENERAL SURGERY PROGRESS NOTE ---
DATE: 08/04/2018 SUBJECTIVE: The patient says his abdomen is sore. He is having some nausea and a sense of fullness when he drinks liquids. No passage of flatus yet. No chest pain or shortness of breath. OBJECTIVE: He is afebrile. Vital signs are normal. Urine output 875 mL. General: He is awake, alert, oriented x4. No acute distress. CV: Regular rate and rhythm. Respiratory: Bilateral clear breath sounds. No increased work of breathing. GI: Soft. Minimal distention. Bowel sounds are present but hypoactive. Incisional dressing is clean and dry. He has diffuse appropriate tenderness to palpation. Extremities: No clubbing, cyanosis, or edema. Laboratory: Pending this morning. ASSESSMENT AND PLAN: An 82-year-old male postoperative day 1, resection of mesenteric mass with small bowel and right colectomy. The plan today is to mobilize out of bed, continue working on incentive spirometry, maintain a liquid diet as tolerated, start him back on his home medicines. cc: Gerald Henry MD
[2018-08-04] MEDS: PERIDEX MT SCH ×2 (08:03→21:11)
[2018-08-04] MEDS: DIOVAN PO SCH (08:03)
[2018-08-04] MEDS: CORDARONE PO SCH ×2 (08:04→21:10)
[2018-08-04] MEDS: ELIQUIS PO SCH ×2 (08:04→21:11)
[2018-08-04] MEDS: PLAVIX PO SCH (08:04)
[2018-08-04] MEDS: FOLIC ACID PO SCH (08:04)
[2018-08-04 08:07] LABS: HEMATOCRIT 32.5 % (42.0-52.0); MCH 26.2 PG (27-31); MCHC 30.8 g/dL (33-37); MCV 85.3 FL (81-99); MPV 10.3 FL (7.4-10.4); RBC 3.81 XMIL (4.7-6.1); RDW 14.3 % (11.5-14.5); WBC 28.84 X1000 (4.8-10.8)
[2018-08-04 08:41] LABS: CALCIUM 8.6 mg/dL (8.8-10.2); CREATININE 1.3 mg/dL (0.7-1.2); POTASSIUM 4.7 mmol/L (3.5-5.1)
[2018-08-04] MEDS ORDERED: LOVENOX SUBQ SCH (09:00)
[2018-08-04] MEDS: DILAUDID IV PRN (12:08)
[2018-08-04] MEDS: NORCO-7.5 PO PRN ×2 (16:18→21:11)
[2018-08-04] MEDS: NS 1,000 ML IV SCH ×2 (16:21→21:10)
[2018-08-04] MEDS: LIPITOR PO SCH (21:11)
[2018-08-05 05:09] LABS: BASO# 0.02 X1000 (0.0-0.2); BASO% 0.1 % (0.0-0.8); HEMATOCRIT 25.8 % (42.0-52.0); HEMOGLOBIN 7.9 g/dL (14.0-18.0); IMM GRAN# 0.09 X1000 (0.0-0.04); IMM GRAN% 0.3 % (0.0-0.5); LYMPH# 0.82 X1000 (1.2-3.4); LYMPH% 3.1 % (20.5-51.1); MCH 26.3 PG (27-31); MCHC 30.6 g/dL (33-37); MONO# 1.87 X1000 (0.11-0.59); MONO% 7.1 % (1.7-9.3); MPV 9.7 FL (7.4-10.4); NEUT# 23.39 X1000 (1.4-6.5); NEUT% 89.4 % (42.2-75.2); PLT 245 X1000 (130-400); RDW 14.4 % (11.5-14.5); WBC 26.19 X1000 (4.8-10.8)
[2018-08-05] MEDS: PROTONIX PO SCH (06:36)
[2018-08-05] MEDS: NS 1,000 ML IV SCH (10:06)
[2018-08-05] MEDS: NORCO-7.5 PO PRN (10:07)
[2018-08-05] MEDS: ZOFRAN IV PRN (10:07)
[2018-08-05] MEDS: PERIDEX MT SCH ×3 (12:13→21:38)
[2018-08-05] MEDS: CORDARONE PO SCH ×2 (12:13→21:38)
[2018-08-05] MEDS: DIOVAN PO SCH (12:14)
[2018-08-05] MEDS: PLAVIX PO SCH (12:15)
[2018-08-05] MEDS: FOLIC ACID PO SCH (12:15)
[2018-08-05] MEDS: ELIQUIS PO SCH (12:16)
[2018-08-05 14:51] LABS: HEMATOCRIT 20.6 % (42.0-52.0); HEMOGLOBIN 6.3 g/dL (14.0-18.0)
--- NOTE | 2018-08-05 14:52 | GENERAL SURGERY PROGRESS NOTE ---
DATE: 08/05/2018 SUBJECTIVE: The patient feels a little better this morning. Less abdominal discomfort and nausea. He has had some loose stool overnight with some maroon blood noted. He does not have any chest pain, shortness of breath. Overall, he just feels weak. OBJECTIVE: Vital Signs: He is afebrile. Vital signs are stable. General: He is awake and alert and oriented x3. No acute distress. CV: Regular rate and rhythm. Respiratory: Bilateral equal breath sounds and clear breath sounds. No increased work of breathing. GI: Soft, nondistended, mildly tender. No rebound or guarding. Hypoactive bowel sounds. Incisional dressing is dry. Extremities: No clubbing, cyanosis, or edema. LABORATORY: White blood cell count 26,000, hemoglobin 7.9, hematocrit 25.8, platelet count 245. 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 Overall, he appears to be hemodynamically stable. He does have a leukocytosis that at this point I think is due to physiologic stress of surgery, but we will continue to monitor and recheck this in the morning. Plan to advance him to a full liquid diet today and, as his bowel sounds and bowel activity improves, advance him to a GI soft diet over the weekend. We have stopped his Lovenox. He is back on Plavix and Eliquis for his cardiovascular disease, but we will monitor his hemoglobin and hematocrit again tomorrow. At this point, he does not need a blood transfusion. If he is transferring to the bedside commode today, then we plan to remove the Phillips catheter tomorrow. Dr. Jay will be making rounds over the weekend. cc: Gerald Henry MD
[2018-08-05] MEDS ORDERED: NS 500 ML IV ONE (20:00)
[2018-08-05] MEDS: LIPITOR PO SCH (21:38)
[2018-08-06 02:23] LABS: HEMATOCRIT 28.8 % (42.0-52.0); HEMOGLOBIN 9.6 g/dL (14.0-18.0)
[2018-08-06] MEDS: PROTONIX PO SCH (06:41)
[2018-08-06 08:39] LABS: BASO# 0.01 X1000 (0.0-0.2); BASO% 0.1 % (0.0-0.8); EOS# 0.02 X1000 (0.0-0.7); EOS% 0.1 % (0.0-10.0); HEMATOCRIT 26.4 % (42.0-52.0); HEMOGLOBIN 8.8 g/dL (14.0-18.0); IMM GRAN# 0.05 X1000 (0.0-0.04); IMM GRAN% 0.3 % (0.0-0.5); LYMPH# 0.77 X1000 (1.2-3.4); LYMPH% 5.2 % (20.5-51.1); MCH 28.4 PG (27-31); MCHC 33.3 g/dL (33-37); MCV 85.2 FL (81-99); MONO# 2.27 X1000 (0.11-0.59); MONO% 15.2 % (1.7-9.3); MPV 10.3 FL (7.4-10.4); NEUT# 11.79 X1000 (1.4-6.5); NEUT% 79.1 % (42.2-75.2); PLT 182 X1000 (130-400); RDW 14.3 % (11.5-14.5); WBC 14.91 X1000 (4.8-10.8)
[2018-08-06 08:57] LABS: CALCIUM 7.5 mg/dL (8.8-10.2); CREATININE 1.4 mg/dL (0.7-1.2)
--- NOTE | 2018-08-06 11:12 | PROGRESS NOTE ---
DATE: 08/06/2018 SUBJECTIVE: Mr. Ignacio Velasquez is an 82-year-old white male, who underwent a right ilium and colon resection for carcinoid per Dr. Henry three days ago. He has had problems postoperatively with bleeding. He required blood transfusion of 2 units yesterday. He did pass a bowel movement today with blood. His hematocrit after transfusion was 28%; this morning his hematocrit is 26%. His abdomen is distended, and he is having some burping, but no vomiting. His heart rate is 79, blood pressure 119/47, O2 saturation is 97%. He is afebrile. His blood thinners have been stopped. His white blood cell count is 15, hematocrit is 26%. Electrolytes are within normal limits. BUN is 39, creatinine is 1.4. PLAN: He is undergoing serial hematocrits. We want him to move around carefully in the room. We will leave his Phillips catheter tube in place so the he does not have to get up too much with the low blood count. cc: MD Gerald Vega MD
[2018-08-06] MEDS: ZOFRAN IV PRN (13:22)
[2018-08-06] MEDS: DILAUDID IV PRN (13:23)
[2018-08-06 14:39] LABS: HEMATOCRIT 27.9 % (42.0-52.0); HEMOGLOBIN 9.2 g/dL (14.0-18.0)
[2018-08-06] MEDS: NS 1,000 ML IV SCH (17:04)
[2018-08-06] MEDS: CORDARONE PO SCH ×2 (17:07→21:11)
[2018-08-06] MEDS: PERIDEX MT SCH ×2 (17:07→21:12)
[2018-08-06] MEDS: FOLIC ACID PO SCH (17:08)
[2018-08-06] MEDS: DIOVAN PO SCH (17:08)
[2018-08-06] MEDS ORDERED: ZOFRAN IV PRN (17:09)
--- NOTE | 2018-08-06 17:49 | Diag Imaging Result Doc PS360 ---
EXAM: FLAT/UPRIGHT ABD/1 VIEW CHEST 08/06/2018 HISTORY: nausea, vomiting TECHNIQUE: Flat and upright abdomen and upright portable chest COMMENT: There are surgical skin maria luisa from the upper abdomen to the pelvis. There is an NG tube with its tip in the distal stomach. There is gas throughout the colon. The small bowel is not distended. There are phleboliths in the pelvis. There is no evidence of organomegaly or mass. The inspiration is suboptimal. There is apparent bilateral basilar platelike atelectasis. This was not present on 07/26/2018. IMPRESSION: 1. Ileus. 2. Bibasilar atelectasis. Electronically signed by Umesh Crawford 08/06/2018 5:47 PM
[2018-08-06 20:31] LABS: HEMATOCRIT 26.5 % (42.0-52.0); HEMOGLOBIN 8.8 g/dL (14.0-18.0)
[2018-08-06] MEDS: LIPITOR PO SCH (21:12)
[2018-08-07] MEDS: PROTONIX PO SCH (06:01)
[2018-08-07 07:06] LABS: HEMATOCRIT 25.3 % (42.0-52.0); HEMOGLOBIN 8.3 g/dL (14.0-18.0)
[2018-08-07 07:22] LABS: AGAP 8; BUN 38 mg/dL (8-22); CALCIUM 7.8 mg/dL (8.8-10.2); CHLORIDE 108 mmol/L (98-107); COSMO 287; CREATININE 1.1 mg/dL (0.7-1.2); ESTIMATED GFR > 60; GLUCOSE 106 mg/dL (70-104); POTASSIUM 3.7 mmol/L (3.5-5.1); SODIUM 139 mmol/L (136-145); TCO2 23 mmol/L (25-35)
--- NOTE | 2018-08-07 09:11 | PROGRESS NOTE ---
DATE: 08/07/2018 SUBJECTIVE: Mr. Velasquez is an 82-year-old white male who underwent excision of a carcinoid tumor by Dr. Henry. His postoperative convalescence has been complicated by bleeding. However, over the last 2 days, his hematocrit has been stable. All his blood thinners have been stopped. Yesterday, an NG tube had to be replaced because of abdominal distention, nausea, and vomiting. The NG tube remains this morning. He still has his Phillips catheter tube. His heart rate is 78, blood pressure 151/55, O2 saturation 94%. He is afebrile. His midline wound is dressed. Will remove that dressing today. His hematocrit is 25%, and his electrolytes are essentially within normal limits. His BUN is 38, creatinine is 1.1. A flat and upright abdominal film performed yesterday was consistent with ileus. PLAN: Will try to get him moving around. Will leave the NG tube and Phillips catheter tube in place for now. He is receiving IV fluids, and will continue to follow his hematocrit. cc: MD Gerald Vega MD
--- NOTE | 2018-08-07 11:03 | Diag Imaging Result Doc PS360 ---
FLAT/UPRIGHT ABD/1 VIEW CHEST - 08/07/2018 INDICATION: nausea, abdominal distention TECHNIQUE: COMPARISON: 08/06/2018 FINDINGS: There is a nasogastric tube in good position in the right upper quadrant. There is linear atelectasis in the lung bases stable from prior. No new infiltrates. Heart size remains top normal. There are several abnormally gas-distended loops of small bowel and colon. This appears identical to prior. No significant free air. IMPRESSION: No change from prior. Diffuse small and large bowel ileus. Electronically signed by Moisés García 08/07/2018 11:01 AM
[2018-08-07] MEDS: PERIDEX MT SCH (12:56)
[2018-08-07] MEDS: DIOVAN PO SCH (12:56)
[2018-08-07] MEDS: CORDARONE PO SCH ×2 (12:56→23:36)
[2018-08-07] MEDS: FOLIC ACID PO SCH (12:56)
[2018-08-07] MEDS: ELIQUIS PO SCH ×2 (12:57→12:58)
[2018-08-07] MEDS: NS 1,000 ML IV SCH ×2 (20:31→23:35)
[2018-08-07] MEDS: LIPITOR PO SCH (23:36)
[2018-08-08] MEDS: PERIDEX MT SCH ×3 (00:45→21:23)
[2018-08-08] MEDS: ELIQUIS PO SCH (00:45)
[2018-08-08] MEDS: NS 1,000 ML IV SCH (00:45)
[2018-08-08] MEDS: DILAUDID IV PRN (06:10)
[2018-08-08] MEDS: PROTONIX PO SCH (06:32)
[2018-08-08] MEDS ORDERED: D5 1/2 NS + KCL 20 MEQ 1,000 ML IV SCH (08:00)
[2018-08-08] MEDS: FOLIC ACID PO SCH (09:22)
[2018-08-08] MEDS: DIOVAN PO SCH (09:22)
[2018-08-08] MEDS: CLINIMIX E 4.25%-5% SOLUTION 1,000 ML IV SCH (09:22)
[2018-08-08] MEDS: CORDARONE PO SCH ×2 (09:22→21:23)
--- NOTE | 2018-08-08 09:33 | GENERAL SURGERY PROGRESS NOTE ---
DATE: 08/08/2018 SUBJECTIVE: The patient had an NG tube placed over the weekend for nausea and abdominal distention indicative of ileus. He has felt better since then with less abdominal distention and nausea. He has passed some gas from his bottom. He has also had a couple more bloody bowel movements. OBJECTIVE: Vital Signs: He is afebrile. His vital signs are stable. Urine output 1350 mL, and NG tube output 1500. General: He is awake, alert, oriented x4. No acute distress. Cardiovascular: Regular rate and rhythm. Respiratory: Bilateral breath sounds. No work of breathing. Gastrointestinal: Soft, mildly distended. Mildly tender. Incision is clean, dry, and intact. Hypoactive bowel sounds. LABORATORY DATA: Hemoglobin 8.3, hematocrit 25.3. Electrolytes reviewed and unremarkable. BUN is 38, creatinine 1.1. These are now trending down. IMAGING STUDIES: Abdominal x-ray yesterday shows diffuse small and large bowel ileus. ASSESSMENT AND PLAN: An 82-year-old male postoperative day 5 distal small bowel resection and right hemicolectomy with resection of carcinoid tumor. Postoperatively, he has had complications of postoperative ileus and lower gastrointestinal bleed likely from the anastomosis. We are holding his blood thinners at this time. We will recheck his blood count this afternoon. We will continue the nasogastric tube to suction for now. I have also encouraged some light ambulation and sitting in a chair with assistance. We are going to convert his intravenous fluids to Clinimix and lipids, and he is still nothing by mouth and requiring nutritional support. cc: Gerald Henry MD
[2018-08-08] MEDS: LIPOSYN 20% 250 ML IV SCH (10:29)
[2018-08-08 12:32] LABS: HEMATOCRIT 24.3 % (42.0-52.0); HEMOGLOBIN 7.8 g/dL (14.0-18.0)
[2018-08-08 18:16] LABS: HEMATOCRIT 25.3 % (42.0-52.0); HEMOGLOBIN 8.2 g/dL (14.0-18.0)
[2018-08-08] MEDS: LIPITOR PO SCH (21:23)
[2018-08-09] MEDS: CLINIMIX E 4.25%-5% SOLUTION 1,000 ML IV SCH ×2 (00:54→15:33)
[2018-08-09 00:56] LABS: HEMOGLOBIN 7.4 g/dL (14.0-18.0)
[2018-08-09 06:39] LABS: HEMATOCRIT 22.7 % (42.0-52.0); HEMOGLOBIN 7.3 g/dL (14.0-18.0)
[2018-08-09] MEDS: PROTONIX PO SCH (07:03)
[2018-08-09] MEDS: DIOVAN PO SCH (08:48)
[2018-08-09] MEDS: CORDARONE PO SCH ×2 (08:48→22:15)
[2018-08-09] MEDS: PERIDEX MT SCH ×3 (08:48→22:16)
[2018-08-09] MEDS: FOLIC ACID PO SCH (08:48)
[2018-08-09] MEDS: LIPOSYN 20% 250 ML IV SCH (08:49)
[2018-08-09] MEDS ORDERED: CHLORASEPTIC SPRAY MT PRN (10:32)
--- NOTE | 2018-08-09 11:32 | Diag Imaging Result Doc PS360 ---
EXAM: FLAT/UPRIGHT ABD/1 VIEW CHEST 08/09/2018 HISTORY: cough, abdominal distention TECHNIQUE: Flat and upright abdomen with AP portable chest COMMENT: There are surgical skin clips from the epigastrium to the pelvis. There is some stool in the colon particularly the rectosigmoid colon. There is an NG tube in the stomach. There is no evidence of small bowel dilatation. There is no evidence organomegaly or mass. There are phleboliths in the pelvis. Compared to 08/07/2018 there is less distention of the colon. There are sternotomy wires. The platelike atelectasis in both bases seen on the previous study has diminished. IMPRESSION: 1. Improved colonic dilatation and constipation. 2. Improved bibasilar atelectasis. Electronically signed by Umesh Crawford 08/09/2018 11:30 AM
--- NOTE | 2018-08-09 12:03 | GENERAL SURGERY PROGRESS NOTE ---
DATE: 08/09/2018 SUBJECTIVE: The patient had a choking episode earlier this morning but is better now. Has some abdominal soreness and distention. He did have a bloody bowel movement overnight. OBJECTIVE: He is afebrile. Vital signs are stable. Urine output 1400 mL. NG tube output 500 mL. General: He is awake and alert, oriented x3. Overall appears weak but in no acute distress. CV: Regular rate and rhythm. Respiratory: Clear bilateral breath sounds. No work of breathing. GI: Soft, mild distention. Hypoactive bowel sounds. Appropriately tender. Incision is clean, dry, and intact. Laboratory: Hemoglobin 7.3, hematocrit 22.7. ASSESSMENT AND PLAN: An 82-year-old male status post open right hemicolectomy and small bowel resection with resection of a carcinoid small bowel mesentery mass. He had postoperative gastrointestinal bleed. He is very weak and deconditioned. He also has a postoperative ileus. We are going to recheck his blood count this afternoon. If it continues to drop, he will get 2 units of blood. We will continue to hold his blood thinners. He remains on nasogastric tube to suction for now. We will check an abdominal x-ray for the distention and a chest x-ray for his cough. I am going to start Reglan for his ileus. I have discussed this with his family. cc: Gerald Henry MD
[2018-08-09] MEDS: REGLAN IV SCH ×3 (12:30→22:16)
[2018-08-09 12:56] LABS: HEMATOCRIT 24.8 % (42.0-52.0); HEMOGLOBIN 7.9 g/dL (14.0-18.0)
[2018-08-09] MEDS: MINERAL OIL NG SCH ×3 (13:22→22:18)
[2018-08-09] MEDS: LIPITOR PO SCH (22:16)
[2018-08-10] MEDS: REGLAN IV SCH ×3 (06:18→17:27)
[2018-08-10] MEDS: PROTONIX PO SCH (06:18)
[2018-08-10] MEDS: CLINIMIX E 4.25%-5% SOLUTION 1,000 ML IV SCH ×2 (06:25→16:01)
[2018-08-10 08:07] LABS: AGAP 7; BUN 20 mg/dL (8-22); CHLORIDE 105 mmol/L (98-107); COSMO 284; CREATININE 0.7 mg/dL (0.7-1.2); ESTIMATED GFR > 60; GLUCOSE 134 mg/dL (70-104); POTASSIUM 3.7 mmol/L (3.5-5.1); SODIUM 140 mmol/L (136-145); TCO2 28 mmol/L (25-35)
[2018-08-10 08:41] LABS: HEMATOCRIT 24.7 % (42.0-52.0); HEMOGLOBIN 7.8 g/dL (14.0-18.0)
[2018-08-10] MEDS: DIOVAN PO SCH (09:05)
[2018-08-10] MEDS: FOLIC ACID PO SCH (09:05)
[2018-08-10] MEDS: CORDARONE PO SCH (09:05)
[2018-08-10] MEDS: LIPOSYN 20% 250 ML IV SCH (09:05)
--- NOTE | 2018-08-10 11:07 | GENERAL SURGERY PROGRESS NOTE ---
DATE: 08/10/2018 SUBJECTIVE: The patient feels a little better this morning. We took his NG tube out last night. He has not had any recurrent nausea, vomiting, or belching. He has passed some gas. No bloody bowel movements. OBJECTIVE: He is afebrile. Vital signs are stable. Urine output 1275 mL. He did have two recorded bowel movements yesterday. General: He is awake, alert, and oriented x4. No acute distress. CV: Regular rate and rhythm. Respiratory: Bilateral breath sounds. No work of breathing. Gastrointestinal: Soft, nondistended. Mildly tender. Incision is clean, dry, and intact. He does have bowel sounds. There are a little more active today. Extremities: No clubbing, cyanosis, or edema. Laboratory: Hemoglobin 7.8, hematocrit 24.7. Electrolytes reviewed and are unremarkable. His BUN and creatinine have returned to normal. ASSESSMENT AND PLAN: An 82-year-old male, now postoperative day 7 from open right hemicolectomy with small-bowel resection and resection of carcinoid tumor from the mesentery. Postoperatively, he has had complications of gastrointestinal bleed and ileus. These appear to be improved or resolved. We will start him on a full liquid diet today with Ensure. I will remove his Phillips catheter. I have encouraged more ambulation and working with physical therapy. I am still holding his blood thinners another day and may restart them tomorrow. Disposition is mostly pending his return of gastrointestinal function, resolution of gastrointestinal bleed, and his conditioning to determine whether he can go home or will need rehab at discharge. cc: Gerald Henry MD
[2018-08-10] MEDS: PERIDEX MT SCH (13:12)
[2018-08-10] MEDS: MINERAL OIL NG SCH (15:03)
[2018-08-11] MEDS: CLINIMIX E 4.25%-5% SOLUTION 1,000 ML IV SCH ×4 (00:15→18:01)
[2018-08-11] MEDS: PERIDEX MT SCH ×4 (00:18→22:05)
[2018-08-11] MEDS: MINERAL OIL NG SCH (00:18)
[2018-08-11] MEDS: LIPITOR PO SCH ×2 (04:16→22:03)
[2018-08-11] MEDS: REGLAN IV SCH ×5 (04:16→22:03)
[2018-08-11] MEDS: CORDARONE PO SCH ×3 (04:16→22:03)
[2018-08-11] MEDS: PROTONIX PO SCH (06:46)
[2018-08-11] MEDS: DIOVAN PO SCH (09:07)
[2018-08-11] MEDS: FOLIC ACID PO SCH (09:07)
[2018-08-11] MEDS: LIPOSYN 20% 250 ML IV SCH (09:08)
--- NOTE | 2018-08-11 10:15 | GENERAL SURGERY PROGRESS NOTE ---
DATE: 08/11/2018 SUBJECTIVE: The patient is doing okay today. He is sore, but no severe pain. No nausea or vomiting. He has tolerated some liquids by mouth. He has had another loose stool, but nonbloody. He made it up to the chair yesterday at least twice. OBJECTIVE: Vital Signs: He is afebrile. His vital signs are stable. General: He is awake and alert. No acute distress. Cardiovascular: Regular rate and rhythm. Respiratory: Bilateral clear breath sounds. No work of breathing. Gastrointestinal: Soft, nondistended. Hypoactive bowel sounds. Incision is clean, dry, and intact. Mild appropriate tenderness to palpation. Extremities: No significant edema. LABORATORY DATA: None today. ASSESSMENT AND PLAN: An 82-year-old male, status post small bowel and right colon resection with resection of mesenteric carcinoid tumor. Postoperative course complicated by gastrointestinal bleed and ileus and deconditioning. The bleed appears to have stopped. I am going to reintroduce Eliquis today and consult Dr. Figueroa, his theatre professor, for further recommendations regarding his anticoagulation. We will continue to work with therapy. I think he will probably benefit from rehabilitation at discharge. We are going to start a gastrointestinal soft diet today and continue to encourage drinking Ensure. cc: Gerald Henry MD
[2018-08-11] MEDS: ELIQUIS PO SCH ×2 (11:18→22:11)
[2018-08-12] MEDS: REGLAN IV SCH (06:04)
[2018-08-12] MEDS: PROTONIX PO SCH (06:04)
[2018-08-12 07:20] LABS: HEMATOCRIT 24.6 % (42.0-52.0); HEMOGLOBIN 7.8 g/dL (14.0-18.0)
[2018-08-12 08:43] VITALS: BP 133/111
[2018-08-12] MEDS: CORDARONE PO SCH (10:40)
[2018-08-12] MEDS: ELIQUIS PO SCH (10:40)
[2018-08-12] MEDS: FOLIC ACID PO SCH (10:40)
[2018-08-12] MEDS: PERIDEX MT SCH ×2 (10:40→10:44)
[2018-08-12] MEDS: DIOVAN PO SCH (10:40)
--- NOTE | 2018-08-12 10:48 | DISCHARGE SUMMARY ---
ADMISSION DATE: 08/03/2018 DISCHARGE DATE: 08/12/2018 ADMITTING PHYSICIAN: Dr. Gerald Henry. ADMITTING DIAGNOSES: 1. Mesenteric mass consistent with carcinoid tumor. 2. History of stroke. 3. History of coronary artery disease. 4. History of deconditioning and back pain. DISCHARGE DIAGNOSES: 1. Mesenteric mass consistent with carcinoid tumor. 2. History of stroke. 3. History of coronary artery disease. 4. History of deconditioning and back pain. 5. Acute blood loss anemia and postoperative ileus. MEAT INSPECTOR: Dr. Figueroa of Cardiology. BRIEF HISTORY: This is an 82-year-old male who was admitted for resection of a mesenteric mass. He has a history of coronary artery disease, stroke, back pain, gastroesophageal reflux disease, arthritis, and generalized deconditioning and he had a planned mass excision and probable bowel resection. PROCEDURES: Open resection of distal small bowel mesenteric mass in right colon with ileocolonic anastomosis. HOSPITAL COURSE: He underwent the above procedure on the date of admission. For details of the procedure, please see the dictated operative report. Postoperatively, he was kept in the ICU initially. He was started on a liquid diet the day after surgery. On day 2 after surgery, he was weak and had some bloody stool. He had little appetite and he was noted to have acute blood loss anemia. He was hemodynamically stable and we began serial hemoglobin and hematocrit. We held his Plavix and Eliquis and stopped the Lovenox. Later that evening, his hemoglobin hematocrit did drop down to 6 and 19 and he was given 2 units of blood. He continued with serial hemoglobin and hematocrit over the weekend. He began developing an ileus with abdominal distention, nausea and some vomiting, and an NG tube was placed and his diet was stopped. On postoperative day 5, he felt better since having the NG tube in, he was beginning to pass some flatus and had a few more bloody bowel movements. His hemoglobin and hematocrit did improve after the blood transfusion and appeared stable 24 hours later. We restarted his Eliquis and I began IV nutritional support with Clinimix and lipids. We were not getting him up out of bed much at this point due to the bleeding and anemia and weakness. On 08/09/2018, he was hemodynamically stable, making good urine. His hemoglobin and hematocrit did drift down again to 7.3 and 22.7. We held his blood thinners again. His abdominal exam was improving and he passed a clamp trial of the nasogastric tube, so it was discontinued. Reglan was started for his ileus. On 08/10/2018, he was feeling better. His NG tube had been removed. He was passing gas. He was having no more bloody bowel movements. His abdomen was less distended. His urine output was adequate. His hemoglobin and hematocrit improved without transfusion to 7.8 and 24.7. His electrolytes were unremarkable. His BUN and creatinine were back to normal. At this point, a full liquid diet and Ensure shakes were started. His Phillips catheter was removed. We began discussing placement at rehab as he was quite deconditioned and weak and having trouble moving anywhere beyond just to a bedside commode. On postoperative day 8, he was tolerating liquids without nausea or vomiting. He had more loose stool but no bloody stool. He was hemodynamically stable. His abdominal exam was benign. I reintroduced the Eliquis and we consulted Dr. Figueroa for further recommendations regarding his anticoagulation as he is on Eliquis and Plavix normally at home. The Plavix is being held at this point. We advanced his diet to a GI soft diet. He still is not ambulating yet other than to a bedside commode. On postoperative day 9, August 12, he is doing well. No severe pain. No nausea or vomiting. He is tolerating some food. He has had more diarrhea but no bloody bowel movements. He is hemodynamically stable. His abdominal is benign. His hemoglobin and hematocrit are stable at 7.8 and 24.6, so at this point, he is stable for discharge from my standpoint. He is tolerating some diet. He is having bowel function. He is hemodynamically stable. He does not appear to be bleeding. He is just weak and deconditioned and needing further physical therapy and rehab, so we are awaiting approval for rehab and Dr. Figueroa's recommendations for his anticoagulation. DISCHARGE MEDICATIONS: He will continue his home Lipitor 40 mg p.o. at bedtime, folic acid 1 mg p.o. daily, Protonix 40 mg p.o. daily, Ultram 1 tab p.o. q.4-6 hours p.r.n. pain, amiodarone 200 mg p.o. b.i.d., valsartan 40 mg p.o. daily, and a new prescription for Barnhart 7.5 mg 1 p.o. q.4 hours p.r.n. pain. We are awaiting Dr. Figueroa's recommendations for his Eliquis 5 mg p.o. b.i.d. and Plavix 75 mg p.o. daily. FOLLOWUP APPOINTMENTS: 1. Dr. Henry in 1-1/[address] Figueroa and his primary care physician, Dr. Gale. FURTHER INSTRUCTIONS: He may eat a soft diet as tolerated. We should advance his physical activity as tolerated. Remove the maria luisa on postop day 14, 08/17/2018, and we will have to monitor over the next few weeks and months his ability to absorb nutrition and see if he has any nutritional deficiencies such as vitamin B12, other electrolytes or just in general, protein loss and weight loss due to the significant small-bowel resection. cc: MD Romeo Ovalle MD Luis N. Villanueva, MD
== END 2018-08-12 15:44 | DRG 827 ==
LOC: SURHOLD 08-03 06:43 → 4N 08-03 10:09
PROVIDERS: ADMIT Surgery; ATTEND Surgery
CPT/HCPCS: 36430; 71020; 71046; 74022; 80048; 81001; 85014; 85018; 85025; 85027; 86850; 86900; 86901; 86920; 88309; 93005; 94761; 94799; 97110; 97162; 97530; A9270; C9290; J0131; J0330; J0690; J1100; J1170; J1650; J2270; J2405; J2765; J7030; J7040; J7120; P9016; S0020; S0030

== ENCOUNTER 2018-08-19 13:09 | Inpatient (IN) ==
--- NOTE | 2018-08-19 14:11 | Diag Imaging Result Doc PS360 ---
EXAM: CT HEAD W/O CONTRAST INDICATION: weakness TECHNIQUE: This exam was performed using automated exposure control, adjustment of mA or kV according to patient size, and/or use of iterative reconstruction technique. COMPARISON: 12/24/2014 FINDINGS: There is stable left frontal lobe encephalomalacia. There is stable mild patchy white matter microangiopathy. There is no definite acute infarct given the limited sensitivity of CT versus MRI. There is no discrete intracranial mass, mass effect, or intracranial hemorrhage. The surrounding soft tissues and bony structures are essentially unremarkable. IMPRESSION: Stable chronic changes as described. No definite acute intracranial pathology by CT. Electronically signed by Marcos Myers 08/19/2018 2:09 PM
[2018-08-19] MEDS ORDERED: NS 500 ML IV ONE (14:48)
[2018-08-19 14:52] LABS: BASO# 0.06 X1000 (0.0-0.2); BASO% 0.5 % (0.0-0.8); EOS# 0.06 X1000 (0.0-0.7); EOS% 0.5 % (0.0-10.0); HEMATOCRIT 24.8 % (42.0-52.0); HEMOGLOBIN 7.7 g/dL (14.0-18.0); IMM GRAN% 0.9 % (0.0-0.5); LYMPH# 1.19 X1000 (1.2-3.4); LYMPH% 10.3 % (20.5-51.1); MONO# 1.11 X1000 (0.11-0.59); MONO% 9.6 % (1.7-9.3); MPV 9.7 FL (7.4-10.4); NEUT# 9.03 X1000 (1.4-6.5); NEUT% 78.2 % (42.2-75.2); PLT 529 X1000 (130-400); RBC 2.85 XMIL (4.7-6.1); WBC 11.55 X1000 (4.8-10.8)
--- NOTE | 2018-08-19 15:05 | Diag Imaging Result Doc PS360 ---
EXAM: CHEST-PORTABLE INDICATION: weak TECHNIQUE: One view COMPARISON: 08/09/2018 FINDINGS: The lungs are grossly clear. There is no discrete pleural fluid collection or pneumothorax. 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 Central vasculature is unremarkable. IMPRESSION: No evidence of acute pathology by plain radiograph. Electronically signed by Marcos Myers 08/19/2018 3:03 PM
[2018-08-19 15:07] LABS: ALB/GLOB RATIO 1.4; CALCIUM 8.3 mg/dL (8.8-10.2); CREATININE 1.4 mg/dL (0.7-1.2); POTASSIUM 4.2 mmol/L (3.5-5.1); TOTAL BILIRUBIN 0.67 mg/dL (0.20-1.00); TOTAL PROTEIN 5.2 g/dL (6.3-8.3)
--- NOTE | 2018-08-19 16:39 | EKG Report ---
Test Performed on : 08/19/2018 3:07:35 PM Test Reason : ED. No order in [place] Blood Pressure : / mmHG Vent. Rate : 079 BPM Atrial Rate : 093 BPM P-R Int : 000 ms QRS Dur : 118 ms QT Int : 434 ms P-R-T Axes : 000 000 032 degrees QTc Int : 497 ms Accelerated Junctional rhythm. Nonspecific intraventricular conduction delay Nonspecific T wave abnormality Abnormal ECG When compared with ECG of 20-AUG-2016 05:52, Junctional rhythm. has replaced Sinus rhythm. Vent. rate has increased BY 28 BPM Nonspecific T wave abnormality has replaced inverted T waves in Anterior leads QT has lengthened Unconfirmed Result
[2018-08-19 17:00] LABS: URINE SOURCE CLEAN CATCH
[2018-08-19] MEDS ORDERED: NS 1,000 ML IV ONE (17:02)
[2018-08-19 17:04] LABS: UR EPITHELIAL CELLS <10 /HPF (<10); URINE BACTERIA NEGATIVE /HPF; URINE RBC <10 /HPF (<10); URINE WBC <10 /HPF (<10)
[2018-08-19 17:06] LABS: BILIRUBIN URINE SMALL (NEGATIVE); BLOOD URINE NEGATIVE (NEGATIVE); COLOR YELLOW; GLUCOSE URINE NEGATIVE (NEGATIVE); KETONE URINE 10 mg/dL (NEGATIVE); LEUKOCYTES URINE NEGATIVE (NEGATIVE); NITRITE URINE NEGATIVE (NEGATIVE); PH URINE 5.5; PROTEIN URINE TRACE mg/dL (NEGATIVE); SP GRAVITY URINE 1.023; TURBIDITY URINE CLEAR (CLEAR); UROBILINOGEN URINE NORMAL (NORMAL)
[2018-08-19] MEDS ORDERED: PROTONIX 80 MG in NS 80 ML IV ONE (17:37)
[2018-08-19] MEDS ORDERED: NEXIUM 80 MG in NS 90 ML IV ONE ×4 (18:00)
--- NOTE | 2018-08-19 18:42 | PROVIDER DOCUMENTATION ---
This chart was entered by Chinyere Burnham Scribe, acting as scribe for Gerald Hoskins MD. HPI-General Adult - General Chief Complaint: Weakness Stated Complaint: weakness Time Seen by Provider: 08/19/18 14:05 Source: patient Allergies/Adverse Reactions: Patient Allergies Allergy/AdvReac Type Severity Reaction Status Date / Time No Known Allergies Allergy Verified 08/03/18 07:02 Home Medications: Home Medication List Medication Instructions Recorded Confirmed Last Taken Type Atorvastatin Calcium [Lipitor] 20 mg PO HS 12/24/14 08/19/18 08/02/18 History Folic Acid 1 mg PO DAILY 12/24/14 08/19/18 08/02/18 History Pantoprazole Sodium 40 mg PO DAILY 07/03/16 08/19/18 08/02/18 History Apixaban [Eliquis] 5 mg PO BID #60 tablet 07/04/16 08/19/18 07/24/18 Rx Amiodarone [Cordarone] 200 mg PO BID #60 tablet 08/20/16 08/19/18 08/03/18 06:00 Rx Hydrocodone/APAP 7.5 mg/325 mg 1 ea PO Q4H PRN PRN #20 tab 08/12/18 08/19/18 Unknown Rx [[place]-7.5] Loperamide HCl [Imodium A-D] 2 mg PO Q6H PRN 08/19/18 08/19/18 Unknown History - History of Present Illness -Gen Adult Nature of Presenting Problems: 82yom presents to ED by EMS cc weakness and lightheaded to the point of almost passing out, after having a BM today. Pt reports he is NH for rehab after a recent bowel surgery. Pt is A&Ox3 and nontoxic in appearance. Pt has hx of HTN and TIA. Quality of Pain: reports: none Onset/Duration: reports: just prior to arrival Timing: reports: gone now Context/Activities at Onset: reports: other (BM) Modifying Factors: worse with: defecating Associated Symptoms: reports: weakness Similar Symptoms Previously?: No Recently seen or treated by another doctor?: No Review of Systems - Adult - REVIEW OF SYSTEMS - ADULT Constitutional: reports: see didier BARBA. denies: chills, fever Eyes: reports: no symptoms reported Ears, Nose, Mouth & Throat: reports: no symptoms reported Cardiovascular: reports: no symptoms reported Respiratory: reports: no symptoms reported Gastrointestinal: reports: no symptoms reported Genitourinary: reports: no symptoms reported Musculoskeletal: reports: no symptoms reported Integumentary: reports: no symptoms reported Neurological: reports: see HPI, other (lightheaded) Psychiatric: reports: no symptoms reported Endocrine: reports: no symptoms reported Hematologic/Lymphatic: reports: no symptoms reported Allergic/Immunologic: reports: no symptoms reported All Other Systems: Reviewed and Negative Past History - Adult - PAST MEDICAL HISTORY-ADULT Review of Records: reports: Nursing Assessment Review, Medications Reviewed, Social history reviewed & non-contributory. Major Childhood Illnesses: reports: denies history Cardiovascular: reports: HTN Respiratory: reports: denies history Gastrointestinal: reports: denies history Obstetrical/Gynecological: reports: denies history Genitourinary: reports: denies history Musculoskeletal: reports: denies history Neurological: reports: TIA Endocrine/Immune: reports: denies history Other Conditions: reports: denies history - PRIOR SURGERIES/PROCEDURES Surgical/Procedure History: reports: other, CABG - IMMUNIZATION STATUS Childhood Immunizations: See Nurse Assessment Flu Vaccine: See Nurse Assessment - FAMILY HISTORY Family History: reviewed, not pertinent Physical Exam-General - PHYSICAL EXAM-ADULT Initial Vital Signs Reviewed: Yes - CONSTITUTIONAL General Appearance: appears well, alert, no apparent distress. negative: anxious, combative - EYES Eyes: PERRL/EOMI, pink conjunctivae. negative: meningismus, pale conjunctivae, photophobia - HEAD, EARS, NOSE, MOUTH & THROAT HENMT: normocephalic/atraumatic, moist mucous membranes, normal ENT inspection. negative: angioedema - NECK Neck: non-tender, full range of motion, supple, normal inspection. negative: C- spine tenderness - RESPIRATORY Respiratory: chest non-tender, lungs clear, normal breath sounds, no pleuratic chest pain, no respiratory distress, no accessory muscle use. negative: crackles, rales, rhonchi, stridor, wheezing - CARDIOVASCULAR Cardiovascular: normal peripheral pulses, regular rate, rhythm, no edema, no gallop, no JVD, no murmur. negative: bradycardia, tachycardia - SKIN Integumentary: normal color, normal turgor, warm/dry. negative: diaphoresis, jaundice - NEUROLOGIC Neurologic: cut in worker II-XII nml as tested, grossly normal, no motor/sensory deficits. negative: facial droop, focal weakness - PSYCHIATRIC Psych/Mental Status: normal mood/affect, normal thought content, normal thought process, oriented x 3. negative: disoriented x 3, anxious, disheveled, depressed affect Progress - PLAN OF CARE/RESULTS Progress/Plan/Lab Results: Vital Signs - 8 hr 08/19/18 14:00 Temperature 98.2 F Pulse Rate 81 Respiratory Rate 18 Blood Pressure 144/63 Orders Category Date Time Status CHEST-PORTABLE [RAD] Stat Exams 08/19/18 14:[address] HEAD W/O CONTRAST [CT] Stat Exams 08/19/18 13:28 Completed CBC WITH ELECTRONIC DIFF [HEME] Stat Lab 08/19/18 14:20 Results CK PROFILE [SP CHEM] Stat Lab 08/19/18 14:20 Received COMPREHENSIVE METABOLIC PANEL [CHEM] Stat Lab 08/19/18 14:20 Received Stool [C DIFF TOXIN] [STOOL] Stat Lab 08/19/18 14:24 Uncollected TROPONIN T Stat Lab 08/19/18 14:20 Received URINALYSIS W/POSS RFLX CULT [URINALYSIS] Stat Lab 08/19/18 14:23 Uncollected 0.9% Sodium Chloride Inj [Ns] 500 ml Med 08/19/18 14:48 Active IV 999 mls/hr Result Diagrams: 08/19/18 14:20 08/19/18 14:20 - EKG 1 Time of EKG reading by physician:: 15:29 EKG Read and Signed by:: Gerald Hoskins EKG Interpretation (*Must complete 3 of following elements*): Abnormal (nonspecific intraventricular conduction delay) Rate: 79 Rhythm: normal sinus QRS: normal ST Wave: non-specific ST changes - XRAY 1 XRAY: Bilateral XRAY Study: Chest Impression: See EMR Report (IMPRESSION: No evidence of acute pathology by plain radiograph. Electronically signed by Marcos Myers 08/19/2018 3:03 PM) - CT/MRI 1 CT Study: Head Impression: See EMR Report (IMPRESSION: Stable chronic changes as described. No definite acute intracranial pathology by CT. Electronically signed by Marcos Myers 08/19/2018 2:09 PM) - CONSULTS/PCP/HOSPITALIST Notification #1 *Consult/PCP/Hospitalist*: Dr. Garcia/Surgeon Time Discussed: 17:32 Consult Disposition: Will see in ED #2 Consult: Dr. Guadarrama Time Discussed: 17:36 Consult Disposition: Admit (agreed to admit pt) Departure - Departure Date of Disposition Decision: 08/19/18 Time of Disposition Decision: 17:42 DIAGNOSIS: GI bleeding Qualifiers: GI bleed type/associated pathology: unspecified gastrointestinal hemorrhage type Qualified Code(s): K92.2 - Gastrointestinal hemorrhage, unspecified Disposition: ADMITTED INPATIENT 09 Certified Medical Emergency: Emergent Condition: Stable Additional Freetext Instructions: ED Follow Up Instructions: You have been treated by a care provider in the Emergency Department. These instructions are being provided to you so you can have an understanding of how to care for yourself upon discharge. Upon discharge from the Emergency Department, you are responsible for making arrangements for follow-up care by a physician of your choice. Take all prescribed medications as directed. Return to the Emergency Department immediately for any new or worsening symptoms. You may call the Physician Referral phone number at [phone] to obtain a list of Physicians who are taking new patients. Referrals and Follow-Ups: Romeo Gale MD [Primary Care Provider] - - Critical Care Note This patient required my direct & personal management of CC.: Yes Total Time (mins): 37 Critical Care Statement: This patient required my direct personal management to treat or rule out processes, the absence of which, could potentiallly result in sudden, clinically significant life or limb threatening deterioration. Attestation - Physician/ MARTINE Attestation Patient care was provided by Advanced Practice Provider:: No The physician spent face to face time with patient:: Yes Advanced Practice Provider documentation review:: Supervising physician onsite and consulted in the evaluation and care of this patient. The physician did have a face to face encounter with the patient. This chart was documented by the indicated scribe, (Chinyere Burnham Scribe) and accurately reflects the services I performed and decisions made by me, Gerald Hoskins MD, as attested by the provider's signature.
--- NOTE | 2018-08-20 02:32 | HISTORY AND PHYSICAL ---
CHIEF COMPLAINT: Passing bright red blood per rectum this afternoon. HISTORY OF PRESENT ILLNESS: He is an 82-year-old, pleasant white gentleman, recently discharged from the hospital after resection of the mesenteric mass and ileocolonic anastomosis by Dr. Henry, transferred to the [facility] on 08/12/2018. He has been doing very well. He started having bleeding per rectum after a bowel movement this afternoon. He is on Eliquis and Plavix with underlying atrial fibrillation and previous stroke. He was very pale. Hemodynamics were stable. Hemoglobin 7 g. He has been admitted to the hospital with lower GI bleeding and transfusion of blood. Dr. Garcia, who was on-call for Dr. Henry, has been consulted. As a result, the hospital admission was warranted. PAST MEDICAL HISTORY: 1. Hyperlipidemia. 2. Hypertension. 3. History of hemorrhoids. 4. Type 2 diabetes, diet controlled. 5. CAD. 6. History of CVA, status post tPA, complete recovery in the past. 7. Prostate cancer. 8. Acid reflux disease. 9. Chronic constipation. 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 11. Chronic low back pain, seen by Dr. Castillo with epidural injections. PAST SURGICAL HISTORY: Hemorrhoidectomy, vasectomy, septoplasty, bypass surgery in 2009, status post mesenteric mass excision, followed by ileocolonic anastomosis. SOCIAL HISTORY: He has been since 1959. Father of 2 children. His is at bedside. He is retired from [employer] . Quit smoking in 1959. No alcohol. No drug abuse. FAMILY HISTORY: Mother had RI at 43. Brother of RI at 52. No cancer history. IMMUNIZATIONS: Pneumococcal vaccine January 2016, Zostavax December 2016, Prevnar 2014, flu vaccine 2017. MEDICATIONS: Lipitor 20 mg daily, folic acid 1 mg daily, Protonix 40 daily, Eliquis 5 mg p.o. b.i.d., Cordarone 200 p.o. b.i.d., Imodium as needed, [place] 7.5 as needed. ALLERGIES: Not known. REVIEW OF SYSTEMS: HEENT: No headache. No vision problem. Dizzy upon standing. No earache. No sore throat. Neck: No neck pain. No goiter. No lymphadenopathy. Cardiopulmonary: No chest pain, shortness of breath, PND, orthopnea. Gastrointestinal: Recently had abdominal surgery. Bleeding per rectum. No nausea. Genitourinary: No history of hesitancy, frequency, dysuria. Swelling of feet, fungus in the toenails. Neurological: No focal symptoms, seizures. PHYSICAL EXAMINATION: VITAL SIGNS: His temperature is 98 degrees, pulse is 89, blood pressure 140/56. HEENT: Very pale mucous membranes. Pupils equally react to light. NECK: Supple. JVD is not elevated. CHEST: Bilateral air entry. CARDIOVASCULAR: Heart sounds are regular. No murmur. GASTROINTESTINAL: Belly is soft. He has bruising with a small hematoma in the mid abdomen. No signs of peritonitis. EXTREMITIES: Pedal edema 1+. Onychomycosis in the toenails. No signs of gangrene noted. NEUROLOGIC: No obvious neurological deficits. INVESTIGATIONS: CBC: White cell count 11, hematocrit 24, platelets 529,000. Sodium 138, potassium 4.2, chloride 104, BUN 18, creatinine 1.4, glucose 106, calcium 8.3. Cardiac enzymes were negative. Urinalysis is negative. Stool occult blood is positive. Chest x-ray, negative. CT of head: Stable chronic changes. No definitive intracranial pathology. Left frontal lobe encephalomalacia noted. EKG: Atrial fibrillation, nothing acute for ischemia. ASSESSMENT AND PLAN: 1. An 82-year-old, white gentleman, admitted to the hospital with recent resection of mesenteric mass consistent with carcinoid tumor with ileocolonic anastomosis after right hemicolectomy, came in with lower gastrointestinal bleeding, with underlying Eliquis. Hemodynamics stable. Transfuse 2 units, surgical consult, and follow up on symptoms or signs of GI bleeding. Consult with Dr. Garcia. 2. Chronic atrial fibrillation with previous stroke. We will hold on the Eliquis, slowly reconcile home medications, crystalloids as needed for hemodynamic support. Discussed the plan of care with the patient as well as the and will follow up. cc: Luiz Guadarrama MD
[2018-08-20] MEDS ORDERED: NEXIUM 80 MG in NS 90 ML IV SCH (04:00)
[2018-08-20] MEDS ORDERED: NS 500 ML IV SCH (08:00)
[2018-08-20 09:54] LABS: HEMATOCRIT 23.4 % (42.0-52.0); HEMOGLOBIN 7.1 g/dL (14.0-18.0); MCH 26.3 PG (27-31); MCHC 30.3 g/dL (33-37); MCV 86.7 FL (81-99); MPV 9.1 FL (7.4-10.4); RBC 2.7 XMIL (4.7-6.1); RDW 15.9 % (11.5-14.5); WBC 7.37 X1000 (4.8-10.8)
[2018-08-20 10:14] LABS: AGAP 10; ALB/GLOB RATIO 1.2; ALBUMIN 2.6 g/dL (3.5-5.0); ALKALINE PHOSPHATASE 70 U/L (32-122); BUN 18 mg/dL (8-22); CALCIUM 7.9 mg/dL (8.8-10.2); CHLORIDE 106 mmol/L (98-107); COSMO 275; CREATININE 1.1 mg/dL (0.7-1.2); ESTIMATED GFR > 60; GLUCOSE 89 mg/dL (70-104); GOT 18 U/L (10-34); GPT 24 U/L (10-44); SODIUM 137 mmol/L (136-145); TCO2 21 mmol/L (25-35); TOTAL BILIRUBIN 0.84 mg/dL (0.20-1.00); TOTAL PROTEIN 4.7 g/dL (6.3-8.3)
--- NOTE | 2018-08-20 10:47 | GENERAL SURGERY CONSULTATION ---
DATE: 08/19/2018 HISTORY OF PRESENT ILLNESS: This is a patient Dr. Yeung. He is an 82-year-old gentleman who underwent an extensive resection including a right colectomy and distal small bowel resection for carcinoid tumor of the small bowel with no metastatic disease noted in the mesentery. He had a long hospital course. He was discharged to rehab where overall he was progressing quite well. Apparently, after a large liquid bowel movement, he had some presyncope, malaise and fatigue. There was some question of blood, although the family denies that he had any identified blood and he was admitted to the ER where he was found to be anemic but stable from his discharge. He is hemodynamically stable. Has no abdominal pain. He has been eating okay, although appetite is minimal. I was consulted for further evaluation. PAST MEDICAL HISTORY: 1. Small bowel carcinoid. 2. History of a stroke and coronary disease on anticoagulation both anti- platelet and Eliquis. Apparently, only the Eliquis has been resumed. PAST SURGICAL HISTORY: Distal small bowel resection, right colectomy. He has had coronary artery bypass grafting as well. SOCIAL HISTORY: Attentive family. No tobacco, alcohol, or drugs. FAMILY HISTORY: Reviewed. REVIEW OF SYSTEMS: Ten point negative other than what is mentioned in the HPI. PHYSICAL EXAMINATION: Vital Signs: Afebrile. Pulse in the 80s, blood pressure 130/91. Oxygen saturation 100%. General: He is alert in no acute distress. HEENT: No scleral icterus. No cervical masses. Cardiovascular: Normal rate. Pulmonary: No increased work of breathing. Integument: Skin is warm, non-diaphoretic. He is somewhat pale. Psychiatric: Appropriate affect. Neurologic: No gross deficits. Midline incision healing. There is some ecchymosis inferiorly but appears to be fading. Soft, nontender. Integument, warm abduction dry. No lower extremity edema noted on peripheral vascular exam. LABORATORY DATA: White count 11, hematocrit 24, stable from previous, platelets 529,000. Creatinine is 1.4; creatinine is up slightly from his baseline of 0.7, although his discharge hemoglobin was 8.2 ASSESSMENT/PLANS: 82-year-old gentleman status post right colectomy with the extensive small bowel resection for carcinoid tumor. Some question of GI bleed. It is possible this could be a peptic ulcer. I have recommended transfusion, hydration, correction of electrolytes. We will monitor with serial hematocrits. He has been admitted to the surgical floor. I have talked with the family. We will hold his Eliquis and anti-platelet as he is on this for atrial fibrillation with history of CVA. We will monitor him going forward. If he were to have symptoms of a GI bleed, I would start with the EGD, avoiding colonoscopy given his recent anastomosis if we were able to. We will continue to follow closely. cc: MD Luiz Obrien MD MTDD
[2018-08-20] MEDS ORDERED: ZOFRAN IV PRN (13:07)
--- NOTE | 2018-08-20 15:28 | Diag Imaging Result Doc PS360 ---
EXAM: CT ABD/PELVIS W/PO AND IV CON INDICATION: abdominal distention TECHNIQUE: This exam was performed using automated exposure control, adjustment of mA or kV according to patient size, and/or use of iterative reconstruction technique. COMPARISON: 04/19/2018 FINDINGS: There is a small right pleural effusion and trace left effusion. There is bibasilar atelectasis. There is small volume ascites tracking around the liver and the spleen. There are a few stable hepatic cysts. The liver is unremarkable, otherwise. The gallbladder is distended and is unremarkable, otherwise. The spleen appears normal. There are pancreatic calcifications indicating chronic pancreatitis. The adrenal glands, kidneys, and urinary bladder are essentially unremarkable. The median prostate lobe is mildly enlarged, stable. There has been a fairly recent laparotomy within the last 2 weeks with resection of the mesenteric mass in the right lower quadrant seen on the previous study. At the site of the resection, there is a complex loculated fluid collection measuring 5.3 x 2.9 cm axially. Lower in the pelvis and crossing the midline, there is another loculated fluid collection with a enhancing rim measuring up to 8.5 x 2.5 cm axially. These two collections probably communicate. There is suspicious for abscess. There is a third much smaller fluid collection more superiorly anterior to the uncinate process of the pancreas in the mesentery measuring up to 2.2 x 1.1 cm axially. This also exhibits vague peripheral enhancement. There is uncomplicated diverticulosis coli. There are air-fluid levels in the colon and there are several small bowel air-fluid levels with mild distention. This is probably related to ileus. There is nothing that is specific for bowel obstruction. There are postsurgical changes at the ventral abdominal wall. IMPRESSION: 1.Recent abdominal surgery with loculated mesenteric fluid collections exhibiting peripheral enhancement as described that are suspicious for abscesses. 2.Air-fluid levels in loops of small bowel in the colon that is probably due to ileus. 3.Small volume ascites tracking around the liver and spleen. 4.Small right pleural effusion and trace left effusion with adjacent bibasilar atelectasis. 5.Other incidental/nonacute findings detailed above. Electronically signed by Marcos Myers 08/20/2018 3:26 PM
[2018-08-20] MEDS: PEPCID IV SCH (17:49)
[2018-08-20] MEDS: SODIUM CHLORIDE 0.9% INJ SCH (17:49)
[2018-08-20] MEDS: ZOSYN 3.375 GM in NS 50 ML IV SCH (17:52)
--- NOTE | 2018-08-20 19:23 | PROGRESS NOTE ---
DATE: 08/20/2018 SUBJECTIVE: The patient is still bleeding. Abdominal also slightly painful at the incision site. Eliquis has been stopped and CT abdomen and pelvis was ordered by Dr. Garcia. The patient did receive 1 unit of packed RBCs. OBJECTIVE: Vital signs: Temperature is 98 degrees, pulse 73, blood pressure 132/52. General: Slightly pale. Neck: Supple. Chest: Clear. Heart: Sounds are regular. Abdomen: Belly is soft. Midline slight hematoma with bruising noted. Extremities: No peripheral edema. INVESTIGATIONS: CBC: White cell count 7.3, hematocrit 23.4, platelets 439,000. Sodium 137, potassium 4, chloride 106, BUN 18, creatinine 1.1, calcium 7.9, albumin 2.6. ASSESSMENT AND PLAN: 1. Lower gastrointestinal bleeding with internal hemorrhoids, status post right hemicolectomy with ileocolonic anastomosis. Follow up on CT scan of the abdomen and pelvis. 2. Transfuse 1 unit of packed red blood cells. 3. Keep hematocrit close to 30 and Zofran for nausea. 4. IV Pepcid for gastrointestinal prophylaxis. 5. Continue hold on the home medicines, which includes amiodarone, Eliquis, atorvastatin. 6. Check the labs in the morning. 7. I appreciate Dr. Garcia's consult. LEVEL OF DOCUMENTATION: 25 minutes. cc: Luiz Guadarrama MD
--- NOTE | 2018-08-20 20:32 | GENERAL SURGERY PROGRESS NOTE ---
DATE: 08/20/2018 SUBJECTIVE: Hemodynamically stable overnight with no fevers. He is a little more distended this morning, somewhat uncomfortable, but no pain. There is transfusing of blood. His white count is down to 7. His hematocrit is 23. Creatinine is down to 1.1. He has had no imaging overnight. ASSESSMENT/PLAN: An 82-year-old gentleman, status post extended distal small-bowel resection, right colectomy for a carcinoid tumor. Some question of a GI bleed. His hematocrit is stable after a unit of blood, but he does appear more well hydrated. I suspect that he is dehydrated. He is distended on exam this morning. His electrolytes are okay. We will obtain a CT scan to ensure there is no occult issue going on. Otherwise, I will keep him NPO. I have encouraged him to be out of bed and ambulating. cc: MD Luiz Obrien MD
[2018-08-21] MEDS: ZOSYN 3.375 GM in NS 50 ML IV SCH ×4 (00:31→18:59)
[2018-08-21] MEDS: PEPCID IV SCH ×2 (05:34→18:58)
[2018-08-21 07:24] LABS: BASO# 0.05 X1000 (0.0-0.2); BASO% 0.7 % (0.0-0.8); EOS# 0.16 X1000 (0.0-0.7); EOS% 2.1 % (0.0-10.0); HEMATOCRIT 26.4 % (42.0-52.0); HEMOGLOBIN 8.3 g/dL (14.0-18.0); IMM GRAN# 0.07 X1000 (0.0-0.04); IMM GRAN% 0.9 % (0.0-0.5); LYMPH# 1.17 X1000 (1.2-3.4); LYMPH% 15.3 % (20.5-51.1); MCH 27.7 PG (27-31); MCHC 31.4 g/dL (33-37); MONO# 0.86 X1000 (0.11-0.59); MONO% 11.2 % (1.7-9.3); MPV 9.3 FL (7.4-10.4); NEUT# 5.34 X1000 (1.4-6.5); NEUT% 69.8 % (42.2-75.2); PLT 360 X1000 (130-400); RDW 15.6 % (11.5-14.5); WBC 7.65 X1000 (4.8-10.8)
[2018-08-21 07:35] LABS: AGAP 15; ALB/GLOB RATIO 0.9; ALBUMIN 2.2 g/dL (3.5-5.0); ALKALINE PHOSPHATASE 70 U/L (32-122); BUN 16 mg/dL (8-22); CHLORIDE 106 mmol/L (98-107); COSMO 274; ESTIMATED GFR > 60; GLUCOSE 72 mg/dL (70-104); GOT 18 U/L (10-34); GPT 19 U/L (10-44); SODIUM 137 mmol/L (136-145); TCO2 16 mmol/L (25-35); TOTAL BILIRUBIN 1.13 mg/dL (0.20-1.00); TOTAL PROTEIN 4.7 g/dL (6.3-8.3)
[2018-08-21] MEDS: SODIUM CHLORIDE 0.9% INJ SCH ×2 (13:11→18:58)
--- NOTE | 2018-08-21 13:38 | PROGRESS NOTE ---
DATE: 08/21/2018 SUBJECTIVE: The patient had a CT of the abdomen and pelvis, findings noted. Complains of bleeding. He has foul-smelling, bloody stools. Two units of packed RBCs were done. REVIEW OF SYSTEMS: None reported other than bleeding per rectum. OBJECTIVE: Vital signs: Temperature is 98 degrees, pulse 75, blood pressure 141/48. HEENT: Pale. No jaundice. Chest: Clear. Heart: Sounds are regular. Abdomen: Belly is soft, nontender. LABS: CBC: White cell count 7.6, hematocrit 26, platelets 360,000. SMA 7 is normal. LFTs were normal. CT scan of the abdomen and pelvis: Recent abdominal surgery, loculated mesenteric fluid collection, air-fluid levels in the small bowel and the colon due to ileus. ASSESSMENT AND PLAN: 1. Lower gastrointestinal bleeding. Previous workup by Dr. Dominguez. Hold on the Eliquis. Will transfuse 1 unit of packed RBCs. We will check the CBC, CMP in the morning. 2. Continue with Zofran and Pepcid. 3. Paroxysmal atrial fibrillation. Currently in sinus. We will hold on the Eliquis. Will start back on Cordarone. Apparently the family is anxious to go back to [facility]. We will keep him over the next 24 hours and check the orthostatic and make sure he is not actively bleeding. LEVEL OF DOCUMENTATION: Twenty-five minutes. cc: Luiz Guadarrama MD
[2018-08-21] MEDS ORDERED: NS 0 ML ONE (15:37)
--- NOTE | 2018-08-21 15:41 | GENERAL SURGERY PROGRESS NOTE ---
DATE: 08/21/2018 SUBJECTIVE: Feels much better. No fevers, no tachycardia overnight. Bowels are functioning. He is hungry. Energy level is better after he was transfused. EXAM: No fever, pulse 75, blood pressure 104/48.General: He is alert. Abdomen: Much less distended and soft. Integument: Warm, dry. LAB: White count 7, hematocrit is up to 26 from 23 yesterday. Creatinine is 1.0. Bilirubin is mildly elevated but AST, ALT and alkaline phosphatase are normal. CT scan obtained yesterday evening showed some mild dilation small bowel loops, some fluid collection in the mesentery concerning for possible early abscess. No free air. ASSESSMENT AND PLAN: This is a 82-year-old gentleman admitted with symptomatic anemia. I do not suspect gastrointestinal bleed. I would hold his Eliquis as we are doing and will need to consider the risks and benefits of this going forward. Will advance his diet today, I am going to decrease his fluids and I do have him on Zosyn, we can switch this to Augmentin at discharge for [address] Henry be back tomorrow, hopefully let him go home tomorrow. cc: MD Luiz Obrien MD
[2018-08-21] MEDS: CORDARONE PO SCH (22:04)
[2018-08-22] MEDS: ZOSYN 3.375 GM in NS 50 ML IV SCH ×4 (01:03→18:08)
[2018-08-22 06:47] LABS: BASO# 0.03 X1000 (0.0-0.2); BASO% 0.4 % (0.0-0.8); EOS# 0.16 X1000 (0.0-0.7); EOS% 2.3 % (0.0-10.0); HEMATOCRIT 29.4 % (42.0-52.0); HEMOGLOBIN 9.3 g/dL (14.0-18.0); IMM GRAN# 0.04 X1000 (0.0-0.04); IMM GRAN% 0.6 % (0.0-0.5); LYMPH# 1.07 X1000 (1.2-3.4); LYMPH% 15.6 % (20.5-51.1); MCH 27.6 PG (27-31); MCHC 31.6 g/dL (33-37); MCV 87.2 FL (81-99); MONO# 0.87 X1000 (0.11-0.59); MONO% 12.7 % (1.7-9.3); NEUT# 4.68 X1000 (1.4-6.5); NEUT% 68.4 % (42.2-75.2); PLT 356 X1000 (130-400); RBC 3.37 XMIL (4.7-6.1); RDW 15.7 % (11.5-14.5); WBC 6.85 X1000 (4.8-10.8)
[2018-08-22] MEDS: PEPCID IV SCH ×2 (07:03→18:08)
[2018-08-22 07:07] LABS: AGAP 12; ALB/GLOB RATIO 1.5; ALBUMIN 2.5 g/dL (3.5-5.0); ALKALINE PHOSPHATASE 65 U/L (32-122); BUN 13 mg/dL (8-22); CALCIUM 7.5 mg/dL (8.8-10.2); CHLORIDE 108 mmol/L (98-107); COSMO 281; CREATININE 1.1 mg/dL (0.7-1.2); ESTIMATED GFR > 60; GLUCOSE 98 mg/dL (70-104); GOT 16 U/L (10-34); GPT 17 U/L (10-44); POTASSIUM 3.4 mmol/L (3.5-5.1); SODIUM 141 mmol/L (136-145); TCO2 21 mmol/L (25-35); TOTAL BILIRUBIN 0.69 mg/dL (0.20-1.00); TOTAL PROTEIN 4.2 g/dL (6.3-8.3)
[2018-08-22] MEDS: CORDARONE PO SCH ×3 (07:52→21:49)
--- NOTE | 2018-08-22 15:01 | GENERAL SURGERY PROGRESS NOTE ---
DATE: 08/22/2018 SUBJECTIVE: The patient is feeling a lot better today. No abdominal pain, nausea, or vomiting. He had a few bowel movements last night and this morning, some of which have been recorded as bloody in nature by the nursing staff. The family seems to think his last 2 were non-bloody. OBJECTIVE: He is afebrile. Vital signs are stable.General: He is awake and alert, oriented x4. No acute distress. Cardiovascular: Regular rate and rhythm. Respiratory: Bilateral equal breath sounds. No work of breathing. Gastrointestinal: Soft, nontender, nondistended. His midline incision is well healed. LABORATORY: White blood cell count 6.8, hemoglobin 9.3, hematocrit 29.4, platelet count 356,000. Electrolytes reviewed and unremarkable. ASSESSMENT AND PLAN: 1. An 82-year-old male status post recent resection for mesenteric carcinoid tumor, stage II, readmitted with symptomatic anemia, questionable gastrointestinal bleed. we will recheck his hemoglobin and hematocrit this afternoon. If he shows signs of rebleeding, we will consult Dr. Dominguez per the family's request. He is off blood thinners. In the meantime, we will keep him on a GI soft diet and have him ambulate with assistance. 2. He is currently on Zosyn for questionable intra-abdominal abscess found on CT scan. We will continue this for now and probably transition to Augmentin prior to discharge. The fluid collections are relatively small and not easily drainable. cc: MD Luiz Ovalle MD
[2018-08-22 15:42] LABS: HEMATOCRIT 32.5 % (42.0-52.0); HEMOGLOBIN 10.3 g/dL (14.0-18.0)
[2018-08-22] MEDS ORDERED: IMODIUM PO PRN (16:09)
[2018-08-22] MEDS ORDERED: NORCO-7.5 PO PRN (16:09)
--- NOTE | 2018-08-22 17:38 | PROGRESS NOTE ---
DATE: 08/22/2018 SUBJECTIVE: Patient feeling better overall. He had some maroon stools and his hemoglobin had dropped down to a swapna of 7.1. He required 3 units PRBCs transfused. Since the transfusion, he has felt much better. The patient is status post stage II small-bowel carcinoid removal a few weeks ago per Dr. Henry. [facility] and shown improvement prior to the onset of these symptoms. He is off his Eliquis now due to this possible GI bleeding. OBJECTIVE: Vital Signs: Afebrile, pulse 98, respirations 20, blood pressure 150/59, and O2 saturation on room air 100%. Cardiovascular: RRR. Lungs: Clear. Abdomen: Soft, active bowel sounds. Minimal diffuse tenderness. Extremities: No calf tenderness, cords, or edema. Neurological: Cranial nerves 2 through 12 are intact. No focal deficits. DIAGNOSTIC DATA: Hemoglobin done late this evening per Dr. Henry shows his hemoglobin to be 10.3, up from 9.3 this morning. White count this morning 6.8, platelets 356,000. Sodium 141, potassium 3.4, chloride 108, CO2 of 21, BUN 13, creatinine 1.1. Liver tests were normal. Calcium 7.5. Occult blood testing on admission was positive. Clostridium difficile toxin is negative. CT scan of the abdomen and pelvis on 08/20/2018 also revealed some possible fluid collections, rule out abscesses that are relatively small. ASSESSMENT: 1. Gastrointestinal bleed, possibly related to recent surgery and Eliquis treatment. 2. Acute gastrointestinal blood loss anemia on top of blood loss anemia related to surgery back a few weeks ago with patient requiring 3 units packed red blood cells transfused. 3. Paroxysmal atrial fibrillation on chronic Eliquis treatment. 4. Coronary artery disease. 5. History of severe cerebrovascular accident fortunately responsive to tPA with complete recovery years ago. 6. Hypertension. 7. Hyperlipidemia. 8. Diet-controlled type 2 diabetes mellitus. 9. Gastroesophageal reflux disease. 10. History of prostate cancer. 11. Chronic constipation in the past, recently with some diarrhea. 12. Chronic low back pain, followed by Dr. Castillo with epidural injections there in the past. 13. Put fluid collections in the abdomen, possible abscesses that are small. 14. History of diverticulosis. PLAN: Continue to leave him off the Eliquis. Continue to monitor his status, and the rehab will not take him back as it is after 4 p.m. today when we got hemoglobin back. I spoke with Dr. Henry, and we will repeat some labs to include BMP and CBC in the morning, and if these are doing well, we will not plan on endoscopies at this time and we will discharge him back to rehab facility on Augmentin and off of the Eliquis. Notably, the patient was on Plavix and Eliquis remotely, but will need to be off these currently due to the GI difficulties. cc: MD Luiz Meza MD
[2018-08-22] MEDS: SODIUM CHLORIDE 0.9% INJ SCH (18:08)
[2018-08-22] MEDS ORDERED: LIPITOR PO SCH (21:00)
[2018-08-23] MEDS: ZOSYN 3.375 GM in NS 50 ML IV SCH ×2 (00:46→06:07)
[2018-08-23] MEDS: PEPCID IV SCH (06:07)
[2018-08-23 07:48] VITALS: BP 137/62
[2018-08-23 07:56] LABS: BASO# 0.03 X1000 (0.0-0.2); BASO% 0.4 % (0.0-0.8); EOS# 0.25 X1000 (0.0-0.7); EOS% 3.4 % (0.0-10.0); HEMATOCRIT 33.3 % (42.0-52.0); HEMOGLOBIN 10.6 g/dL (14.0-18.0); IMM GRAN# 0.04 X1000 (0.0-0.04); IMM GRAN% 0.5 % (0.0-0.5); LYMPH# 1.67 X1000 (1.2-3.4); LYMPH% 22.5 % (20.5-51.1); MCH 28.3 PG (27-31); MCHC 31.8 g/dL (33-37); MCV 88.8 FL (81-99); MONO# 0.88 X1000 (0.11-0.59); MONO% 11.8 % (1.7-9.3); MPV 9.1 FL (7.4-10.4); NEUT# 4.56 X1000 (1.4-6.5); NEUT% 61.4 % (42.2-75.2); PLT 382 X1000 (130-400); RBC 3.75 XMIL (4.7-6.1); RDW 16.1 % (11.5-14.5); WBC 7.43 X1000 (4.8-10.8)
[2018-08-23 08:12] LABS: AGAP 9; BUN 8 mg/dL (8-22); CALCIUM 8.5 mg/dL (8.8-10.2); CHLORIDE 105 mmol/L (98-107); COSMO 276; CREATININE 1.1 mg/dL (0.7-1.2); ESTIMATED GFR > 60; GLUCOSE 100 mg/dL (70-104); SODIUM 139 mmol/L (136-145); TCO2 25 mmol/L (25-35)
[2018-08-23] MEDS ORDERED: PROTONIX PO SCH (09:00)
[2018-08-23] MEDS ORDERED: FOLIC ACID PO SCH (09:00)
[2018-08-23] MEDS: CORDARONE PO SCH (09:15)
--- NOTE | 2018-08-23 10:29 | DISCHARGE SUMMARY ---
ADMISSION DATE: 08/19/2018 DISCHARGE DATE: 08/23/2018 DIAGNOSES: 1. Gastrointestinal bleeding on top of surgical-related blood loss and contributed to by Eliquis treatment. 2. Acute gastrointestinal blood loss anemia on top of recent blood loss anemia related to carcinoid tumor with partial small-bowel resection and right hemicolectomy. The patient required 3 units of packed red blood cells transfused during the hospitalization, and hemoglobin equilibrated to 10.6 after transfusion, after reaching a swapna of 7.1. 3. History of recent carcinoid tumor removal with partial small-bowel resection and partial right hemicolectomy, stage II carcinoid, followed by Dr. Henry. 4. Small fluid collections in the abdomen, rule out abscesses. On Zosyn during this hospitalization, and now on Augmentin orally, with normal white count and no fevers. 5. Paroxysmal atrial fibrillation, previously on chronic Eliquis and Plavix treatment, but now off of these due to the bleeding. 6. Coronary artery disease with history of coronary artery bypass graft remotely. 7. History of severe cerebrovascular accident. Fortunately, very responsive to tissue plasminogen activator with complete resolution after the tissue plasminogen activator many years ago, and stable on Eliquis and Plavix until this has been stopped now due to the bleeding. 8. Hypertension. 9. Hyperlipidemia. 10. Type 2 diabetes, diet controlled. 11. Gastroesophageal reflux disease. 12. History of prostate cancer. 13. Chronic constipation. 14. Chronic low back pain, followed by Dr. Castillo, with epidural injections in the past. 15. History of diverticulosis. CONSULTANTS: Dr. Henry, General Surgery. IMAGING: CT scan of the head done on admission showed stable chronic changes to include stable left frontal lobe encephalomalacia. Chest x-ray showed no acute pathology. CT scan of the abdomen and pelvis with findings as below in the note, to include diverticulosis, uncomplicated. REASON FOR ADMISSION AND HOSPITAL COURSE: The patient is an 82-year-old white male, followed in my medical practice and also followed by Dr. Henry. He had resection of distal small bowel and right hemicolectomy due to stage II carcinoid, and was in the hospital recently for that, and was discharged to rehab. While at the rehab, he had some liquid bowel movements, which were blood- tinged, and he was admitted to the hospital for that. He was Hemoccult-positive. Clostridium difficile toxin was negative. Lab data showed white count on admission of 11.55, hemoglobin was 7.7 and dropped by 08/20/2018 to 7.1. He received 3 units of PRBCs transfused per Dr. Henry, and was placed on IV Zosyn and was given IV Pepcid, and improved generally. He began to feel better after the blood transfusion, and his hemoglobin equilibrated to 10.6 by 08/23/2018. There were no active signs of bleeding at all. CT scan of the abdomen and pelvis done on 08/20/2018 revealed some loculated mesenteric fluid collections, possibly representing small abscesses. Also, some air-fluid levels in loops of the small bowel, likely due to ileus, small-volume ascites tracking around the liver and spleen, small right pleural effusion, and trace left effusion, with bibasilar atelectasis. The patient remained on the Zosyn during the hospitalization, and he had no fever and his white count normalized. As stated, after the transfusion, his hemoglobin stabilized at 10.6. He did well, and Dr. Henry did not feel that he required further GI assessment with endoscopies, and I concur. The patient was doing well and working with Physical Therapy. It was felt by 08/23/2018 that he could return to rehab at [facility]. He will be off of Eliquis and Plavix, and will hopefully be able to reinstitute that in the weeks to come, but he will be off that for now. DISCHARGE MEDICATIONS: Amiodarone 100 mg p.o. on Mondays, Wednesdays, and Fridays, and 200 mg on the other days, Lipitor 40 mg p.o. at bedtime, folic acid 1 mg p.o. daily, [place] 7.5 mg every 4 to 6 hours p.r.n. pain, Imodium AD 2 mg p.o. every 6 hours p.r.n. diarrhea, Zofran 4 mg p.o. every 4 to 6 hours p.r.n. nausea or vomiting, Protonix 40 mg p.o. b.i.d., Augmentin 875 mg p.o. b.i.d. for an additional 10 days. DISCHARGE INSTRUCTIONS: He will follow up with me in 2-1/2 to [address] Carl in that timeframe as well. We hope we will be able to reinstitute some anticoagulants later on. He will have CBC and CMP done at the rehab facility in 1 week, and that will be followed. cc: MD Luiz Meza MD
--- NOTE | 2018-08-23 10:34 | GENERAL SURGERY PROGRESS NOTE ---
DATE: 08/23/2018 SUBJECTIVE: The patient is feeling well this morning. No significant pain, nausea or vomiting. He is starting to eat his breakfast. OBJECTIVE: Vital Signs: He is afebrile. Vital signs are stable. General: He is awake, alert, oriented x3. No acute distress. GI: Soft, nontender, nondistended. Incision clean, dry, and intact. LABORATORY: White blood cell count 7.4, hemoglobin 10.6, hematocrit 33.3. Electrolytes reviewed and unremarkable. ASSESSMENT AND PLAN: An 82-year-old male status post resection of carcinoid tumor involving the small bowel and colon mesentery. He was readmitted for weakness, symptomatic anemia and possible gastrointestinal bleed. He has shown no further signs of gastrointestinal bleed over the last 48 hours. He is stable for discharge back to rehabilitation and will follow up with me in 1 to 2 weeks. Also there are some fluid collections on CT scan that may or may not represent infected seromas or hematomas. Clinically he is doing well, but I think we should cover him with Augmentin for the next 10 days at rehabilitation and home. cc: MD Luiz Ovalle MD
[2018-09-05] MEDS ORDERED: CORDARONE PO SCH (09:00)
== END 2018-08-23 11:02 | DRG 811 ==
LOC: SUPCPDRO → ED 13:09 → EDIPHOLD 18:44 → 4N 19:12
PROVIDERS: ADMIT Internal Medicine; ATTEND Family Medicine
CPT/HCPCS: 36430; 70450; 71010; 71045; 74177; 80048; 80053; 81001; 82270; 82550; 84484; 85014; 85018; 85025; 85027; 86850; 86900; 86901; 86920; 87324; 93005; 97116; 97162; A9270; C9113; J2543; J7030; J7040; P9016; Q9967; S0028; S0164